=== PATIENT | female | born 1930 | race Caucasian/White ===

== ENCOUNTER → 2016-11-01 | Outpatient (CLI) | payer MEDICARE ==
[~2016-11-01] MED LIST: AMLO2.5T2 PO; ATOR20TA49 PO; CALC-9 PO; CALC625T PO; CLD600T; CLOP75TA69 PO; CYAN10007 PO; E400C; HCT25T; HCTZ12.5T; HYDR-3583 PO; LEVO75TA57 PO; LISI1TAB6 PO; LSNP10T; LVT.088T; LVT.088T PO; MULT-178 PO; MULT1CAP27 PO; MULT1TAB63; NITR-65 PO; OMEG1CAP26 PO; OMG1KC; PSYL0.525 PO; PYRI100T2 PO; THYROXINE; VITA1CAP11 PO
--- NOTE | 2016-11-01 15:21 | Diagnostic Imaging Report ---
PA and lateral views of the chest. INDICATION: Shortness of breath. FINDINGS: There is mild hyperinflation in the lungs. Mild opacity in the medial right lung base is likely related to prominent pericardial fat pad with no focal infiltrate. The heart size is normal. No effusion or pneumothorax. The mediastinum and ruth appear unremarkable. Surgical clips in the left axilla region seen. IMPRESSION: COPD. Dictated by: Dictated on workstation # [id number]
== END ==
LOC: RAD 14:29
PROVIDERS: ATTEND Internal Medicine
DX: R06.09 Other forms of dyspnea (principal); R09.02 Hypoxemia
CPT/HCPCS: 71020

== ENCOUNTER → 2016-11-19 | Outpatient (CLI) | payer MEDICARE ==
--- NOTE | 2016-11-22 06:55 | ECHOCARDIOGRAPHY REPORT ---
DATE OF SERVICE: 11/19/2016 ECHOCARDIOGRAPHY REPORT ORDERING PHYSICIAN: Dr. Nicole. PRIMARY PHYSICIAN: Dr. Carlos. CLINICAL DIAGNOSES: Tiredness, shortness of breath, paroxysmal atrial fibrillation. MEASUREMENTS: 1. LV diameter diastolic 4.9. 2. IVS thickness, diastolic 1.1. 3. LVPW thickness, diastolic, 0.8. 4. Aortic root 3.4. 5. Left atrium 3.7. DESCRIPTION: Two-dimensional echocardiography shows normal global left ventricular systolic function with normal regional wall motion. There is no significant pericardial effusion. Chamber sizes appear to be within normal limits. Aortic valve is trileaflet. There is mild aortic valve sclerosis. Mitral inflow is consistent with grade 1 diastolic dysfunction of the left ventricle. There is no evidence of any significant intracardiac shunt on this transthoracic echocardiographic study. Inferior vena cava is of normal size and appears mostly collapsed during the study. Pulmonary artery systolic pressure is estimated to be 30 to 35 mmHg. CONCLUSIONS: 1. Normal global left ventricular systolic function with an ejection fraction of approximately 65%. 2. Trivial mitral and tricuspid regurgitation. 3. Mild diastolic dysfunction, left ventricle. 4. Mild aortic valve sclerosis. 5. No evidence of any significant valvular stenosis. 6. Pulmonary artery systolic pressure is estimated to be 30 to 35 mmHg. Job ID: [id number] DocumentID: [id number] Dictated Date: 11/21/2016 13:28:37 Coordinating Producer Date: 11/21/2016 14:52:44 Dictated By: BENI NICOLE MD, MA, FACP, FACC,
== END ==
LOC: CARD 10:41
PROVIDERS: ATTEND Internal Medicine Cardiovascular Disease
DX: I48.0 Paroxysmal atrial fibrillation (principal); R06.02 Shortness of breath; R53.83 Other fatigue; G45.9 Transient cerebral ischemic attack, unspecified
CPT/HCPCS: 93225; 93226; 93306

== ENCOUNTER → 2016-11-27 | Outpatient (CLI) | payer MEDICARE ==
[~2016-11-27] MED LIST changes: +CATHETER FLUSH 10 ML SYR IV PRN; +REGADENOSON 0.4 MG/5 ML SYR (LEXISCAN) IV ONE
[2016-11-27 09:23] VITALS: BP 135/77
[2016-11-27 09:27] VITALS: BP 113/55
--- NOTE | 2016-11-28 06:30 | STRESS TEST ---
DATE OF SERVICE: 11/27/2016 PROCEDURE: RESTING AND POST REGADENOSON TECHNETIUM 99M TETROFOSMIN SPECT CT IMAGING ORDERING PHYSICIAN: Remi Nicole MD, MA, FACP, FACC CLINICAL DIAGNOSES: Paroxysmal atrial fibrillation, tiredness and shortness of breath. Baseline images were carried out after injection of 10.93 mCi of technetium-99m Tetrofosmin. This was followed by 0.4 mg of Regadenoson and 31.1 mCi of technetium-99m Tetrofosmin for stress imaging. The electrocardiogram showed sinus rhythm at baseline and left axis deviation. The electrocardiogram did not change significantly with Regadenoson infusion. The patient tolerated the procedure well. Review of images at rest and following stress indicates somewhat diminished count uptake in the diaphragmatic wall of the left ventricle, likely due to diaphragmatic attenuation, seen both at rest and following Regadenoson infusion. Gated images show normal global left ventricular systolic function with normal regional wall motion, including the diaphragmatic wall of the left ventricle. The left ventricular ejection fraction is calculated to be 63%. Left ventricular end diastolic volume is 55 mL. TID is absent (1.09). CONCLUSIONS: 1. No evidence of any significant myocardial ischemia or infarction on this study. 2. Normal regional wall motion. 3. Normal global left ventricular systolic function with a calculated ejection fraction of 63%. Job ID: [id number] DocumentID: [id number] Dictated Date: 11/27/2016 14:06:55 Aquarium Specialist Date: 11/27/2016 15:08:49 Dictated By: REMI NICOLE MD, ALEXANDER, FACP, FACC,
== END ==
LOC: CARD 08:16
PROVIDERS: ATTEND Internal Medicine Cardiovascular Disease
DX: I48.0 Paroxysmal atrial fibrillation (principal); G45.2 Multiple and bilateral precerebral artery syndromes; R06.02 Shortness of breath; R53.83 Other fatigue
CPT/HCPCS: 78452; 93017

== ENCOUNTER → 2016-11-29 | Outpatient (CLI) | payer MEDICARE ==
[~2016-11-29] MED LIST changes: -CATHETER FLUSH 10 ML SYR IV PRN; -REGADENOSON 0.4 MG/5 ML SYR (LEXISCAN) IV ONE
--- NOTE | 2016-11-29 16:59 | Diagnostic Imaging Report ---
PROCEDURE: CT abdomen and pelvis without contrast. TECHNIQUE: Multiple contiguous axial images were obtained through the abdomen and pelvis without the use of intravenous contrast. INDICATION: Lower abdominal pain and pelvic pain. FINDINGS: The lung bases demonstrate no significant consolidation. There is a nonspecific 5 mm nodule in the inferior lingula. The liver, spleen, adrenals, and pancreas appear unremarkable. There are cysts seen in the left kidney with no hydronephrosis. The right kidney demonstrates mild hydronephrosis with minimal dilatation of the right ureter seen. There is soft tissue fullness in the right side of the pelvis, inseparable from adjacent unopacified bowel loops and the right adnexa. This involves an area approximately measuring 5.9 x 3.3 x 6.2 cm. Better evaluation with a CT scan with oral contrast and, if feasible, IV contrast would be recommended. A pelvic ultrasound could be helpful. There is no bowel obstruction. No significant lymphadenopathy is seen in the abdomen or pelvis. No significant free fluid or fluid collection. The osseous structures demonstrate advanced degenerative changes in the lower lumbar spine. IMPRESSION: Indeterminate fullness within the right side of the pelvis inseparable from adjacent bowel loops and right adnexa. Further evaluation with a pelvic ultrasound and a CT scan with oral and IV contrast (if feasible) is recommended. Report faxed to Dr. Carlos at 4:58 p.m. 11/29/2016/tia Dictated by: Dictated on workstation # [id number]
== END ==
LOC: RAD 13:07
PROVIDERS: ATTEND Internal Medicine
DX: R93.5 Abnormal findings on diagnostic imaging of other abdominal regions, including retroperitoneum (principal)
CPT/HCPCS: 74176

== ENCOUNTER 2016-12-13 09:39 | Emergency (ER) | payer MEDICARE ==
[~2016-12-13] VITALS: Ht 170.2 cm; Wt 64.9 kg
--- NOTE | 2016-12-13 10:28 | ED Trauma-Multisystem ---
General Chief Complaint: Trauma-Non Activation Stated Complaint: FALL/HEAD INJURY Nursing Triage Note: PT WAS IN ASSISTED LIVING REACHING FOR SOMETHING OUT OF HER CABINET AND FELL HITTING HER HEAD. DENIES LOC. IS ON A BLOOD THINNER. PT IS SCHEDULED FOR A TRANSVAGINAL US TOMORROW HERE AND DAUGHTER IS WONDERING IF THEY COULD HAVE IT DONE NOW. Source of Information: Patient Exam Limitations: No Limitations (DAFNE SOTO MD) History of Present Illness Time Seen by Provider: 10:20 Initial Comments The patient's an 86-year-old white female. She lives in an assisted living facility. She reports that this morning she was reaching above her head to get an item out of the cupboard. She then fell backward and apparently struck her head. There was no loss of consciousness. She does have some ambulation issues anyway. She was able to crawl back across the room and pushed the call button and the staff came to her rescue. Occurred: This Morning Pain/Injury Location: None Method of Injury: Fall Associated Symptoms (Fall): Denies Symptoms (DAFNE SOTO MD) Allergies and Home Medications Allergies Coded Allergies: aspirin (Verified Allergy, Unknown, 05/01/15) niacin (Verified Allergy, Unknown, 05/01/15) clopidogrel (Verified Adverse Reaction, Unknown, INTERNAL BLEEDING , 05/01) Uncoded Allergies: BERLANTA (Allergy, Severe, ASTHMA, 12/13/16) Home Medications Amlodipine Besylate 2.5 Mg Tablet, 2.5 MG PO DAILY, (Reported) Atorvastatin Calcium 20 Mg Tablet, 20 MG PO DAILY, #30 Prescribed by: GAGE DOMINGUEZ on 05/02/15 1425 Calcium Carbonate/Vitamin D3 1 Each Tablet, 1 TAB PO DAILY, (Reported) Cyanocobalamin 1,000 Mcg Tablet.sa, 1,000 MCG PO DAILY, (Reported) Levothyroxine Sodium 75 Mcg Tablet, 75 MCG PO DAILY, (Reported) Multivitamin 1 Each Tablet, 1 TAB PO DAILY, (Reported) Nitrofurantoin Monohyd/M-Cryst 100 Mg Capsule, 1 TAB PO BID, #14 Ref 0 Prescribed by: KAREN MERCEDES on 01/01/16 1341 [place]-3/Dha/Epa/Fish Oil 1 Each Capsule, 3,000 MG PO DAILY, (Reported) TAKES 3 (1000MG) CAPSULES Pyridoxine Hcl 100 Mg Tablet, 100 MG PO DAILY, (Reported) Vitamins A and D 1 Each Capsule, 1 CAP PO DAILY, (Reported) [Eliquis] , (Reported) Constitutional: see HPI Eyes: No Symptoms Reported Ears: No Symptoms Reported Nose: No Symptoms Reported Mouth: No Symptoms Reported Throat: No Symptoms to Report Respiratory: no symptoms reported Cardiovascular: No Symptoms Reported Gastrointestinal: no symptoms reported Genitourinary: no symptoms reported Musculoskeletal: no symptoms reported Skin: no symptoms reported Psychiatric/Neurological: No Symptoms Reported (DAFNE SOTO MD) Past Vyfkvsu-Imzxpw-Nwqfnh Hx Patient Social History Alcohol Use: Denies Use Recreational Drug Use: No Smoking Status: Never a Smoker Recent Foreign Travel: No Contact w/Someone Who Travel: No Recent Infectious Disease Expo: No Recent Hopitalizations: No (DAFNE SOTO MD) Immunizations Up To Date Date of Pneumonia Vaccine: Oct 11, 2014 Date of Influenza Vaccine: May 27, 2012 (DAFNE SOTO MD) Surgeries HX Surgeries: Yes (COLONOSCOPY 02/24, COLECTOMY 02/24, NASAL POLYPS REMOVED, LT MASTECTOMY) (DAFNE SOTO MD) Respiratory Hx Respiratory Disorders: No (DAFNE SOTO MD) Cardiovascular Hx Cardiac Disorders: Yes Cardiac Disorders: Atrial Fibrillation, High Cholesterol, Hypertension (DAFNE SOTO MD) Neurological Hx Neurological Disorders: Yes (CONFUSION X4 (UTI VS TIA)) Neurological Disorders: TIA (DAFNE SOTO MD) Reproductive System Hx Reproductive Disorders: No Sexually Transmitted Disease: No (DAFNE SOTO MD) Genitourinary Hx Genitourinary Disorders: Yes (UTI) (DAFNE SOTO MD) Gastrointestinal Hx Gastrointestinal Disorders: Yes (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) Gastrointestinal Disorders: Hemorrhoids, Polyps (DAFNE SOTO MD) Musculoskeletal Hx Musculoskeletal Disorders: Yes Musculoskeletal Disorders: Arthritis (DAFNE SOTO MD) Endocrine Hx Endocrine Disorders: Yes Endocrine Disorders: Hypothyroidsim (DAFNE SOTO MD) HEENT HX ENT Disorders: Yes (LT EYE LAZY, RT EYE CATARACT REMOVED ) (DAFNE SOTO MD) Cancer Hx Cancer: No (DAFNE SOTO MD) Psychosocial Hx Psychiatric Problems: No (DAFNE SOTO MD) Integumentary HX Skin/Integumentary Disorder: No (DAFNE SOTO MD) Blood Transfusions Hx Blood Disorders: Yes ("SLIGHT ANEMIA" ) Adverse Reaction to a Blood Tr: No (DAFNE SOTO MD) Family Medical History Significant Family History: No Pertinent Family Hx Family Medial History: Diabetes mellitus G8 SISTER G8 SISTER (DAFNE SOTO MD) Family Medial History: Diabetes mellitus G8 SISTER G8 SISTER (NAYAN HERNANDEZ MD) Physical Exam Vital Signs Vital Sign - Last 12Hours 12/13/16 09:51 Temp 98.0 Pulse 75 Resp 16 B/P (MAP) 114/61 Pulse Ox 98 (NAYAN HERNANDEZ MD) Temperature (Fahrenheit): 98.0 General Appearance: No Apparent Distress, WD/WN Head: No Evidence of Injury, Other (the patient reports she believes that she fell to the right. There is no evidence of contusion or ecchymosis on the right uatsdin and no deformity to the eyeglasses) Eyes: Bilateral Eye Normal Inspection Neck: Normal Inspection Cardiovascular: Regular Rate, Rhythm, No Edema, No Gallop, No JVD, No Murmur, Normal Peripheral Pulses Respiratory: Chest Non Tender, Lungs Clear, Normal Breath Sounds, No Accessory Muscle Use, No Respiratory Distress Gastrointestinal: Normal Bowel Sounds, No Organomegaly, No Pulsatile Mass, Non Tender, Soft Back: Normal Inspection, No CVA Tenderness, No Vertebral Tenderness Extremity: Normal Capillary Refill, Normal Inspection, Normal Range of Motion, Non Tender, No Calf Tenderness, No Pedal Edema Neurologic/Psychiatric: Alert, Oriented x3, No Motor/Sensory Deficits, Normal Mood/Affect Skin: Normal Color, Warm/Dry Lymphatic: No Adenopathy (DAFNE SOTO MD) [place] Coma Score Best Eye Response ([place]): (4) Open Spontaneously Best Verbal Response ([place]): (5) Oriented Best Motor Response ([place]): (6) Obeys Commands (DAFNE SOTO MD) Progress/Results/Core Measures Results/Orders Vital Signs/I&O Vital Sign - Last 12Hours 12/13/16 09:51 Temp 98.0 Pulse 75 Resp 16 B/P (MAP) 114/61 Pulse Ox 98 (NAYAN HERNANDEZ MD) Blood Pressure Mean: 78 Progress Note : Progress Note 1110: CT head shows no acute findings. Patient remains without significant concerns. She has follow-up with her doctor and further testing tomorrow for other stuff. Discharged home with return precautions. Patient and her daughter verbalize understanding instructions and agreement with plan. (NAYAN HERNANDEZ MD) Diagnostic Imaging Diagonstic Imaging: CT Plain Films/CT/US/NM/MRI: head Comments NAME: ANDREW CAGE [facility] REC#: [id number] PT STATUS: REG ER : 1930 PHYSICIAN: DAFNE SOTO MD ADMIT DATE: 12/13/16/ER Signed Date of Exam: 12/13/16 CT HEAD WO PROCEDURE: CT head without contrast. TECHNIQUE: Multiple contiguous axial images were obtained through the brain without the use of intravenous contrast. INDICATION: Fall. FINDINGS: There is no intracranial hemorrhage, edema or mass-effect. Periventricular and deep white matter hypodensities similar to 01/01/2016 are again noted compatible with chronic microvascular ischemic changes. No hydrocephalus. No extra-axial fluid collection is seen. Again seen are postoperative changes involving the anterior aspect of the right frontal sinuses which appear completely opacified, similar to the previous exam. Sinonasal postsurgical changes are also noted in the maxillary sinuses, ethmoidal air cells, and sphenoidal sinuses. The mastoid air cells and middle ear cavities appear unremarkable. IMPRESSION: No acute process. Dictated by: Dictated on workstation # [id number] Dict: 12/13/16 1031 Trans: 12/13/16 1042 Interpreted by: JERILYN RAYO MD Electronically signed by: JERILYN RAYO MD 12/13/16 1042 (NAYAN HERNANDEZ MD) Departure Impression Impression: Primary Impression: Head injury Qualified Codes: S09.90XA - Unspecified injury of head, initial encounter Disposition: 01 HOME, SELF-CARE Condition: Stable Departure-Patient Inst. Decision time for Depature: 11:13 (NAYAN HERNANDEZ MD) Referrals: RONALD TAVERAS MD (PCP/Family) Primary Care Physician Patient Instructions: Minor Head Injury (DC) Add. Discharge Instructions: All discharge instructions reviewed with patient and/or family. Voiced understanding. Continue home medications as directed. Follow-up with your . and keep appointments as scheduled. Return for worsening, fever, vomiting, weakness, breathing problems or other concerns as needed. DAFNE SOTO MD December 13, 2016 10:28 NAYAN HERNANDEZ MD December 13, 2016 11:15
[2016-12-13] MEDS ORDERED: ELIQUIS (10:38)
--- NOTE | 2016-12-13 10:42 | Diagnostic Imaging Report ---
PROCEDURE: CT head without contrast. TECHNIQUE: Multiple contiguous axial images were obtained through the brain without the use of intravenous contrast. INDICATION: Fall. FINDINGS: There is no intracranial hemorrhage, edema or mass-effect. Periventricular and deep white matter hypodensities similar to 01/01/2016 are again noted compatible with chronic microvascular ischemic changes. No hydrocephalus. No extra-axial fluid collection is seen. Again seen are postoperative changes involving the anterior aspect of the right frontal sinuses which appear completely opacified, similar to the previous exam. Sinonasal postsurgical changes are also noted in the maxillary sinuses, ethmoidal air cells, and sphenoidal sinuses. The mastoid air cells and middle ear cavities appear unremarkable. IMPRESSION: No acute process. Dictated by: Dictated on workstation # [id number]
[2016-12-13 11:23] VITALS: BP 107/65
== END 2016-12-13 11:23 ==
LOC: EDUNIT# 09:39 → ER 09:41
DX: S09.90XA Unspecified injury of head, initial encounter (principal); I10 Essential (primary) hypertension; I48.2 Chronic atrial fibrillation; Z79.01 Long term (current) use of anticoagulants; Z79.899 Other long term (current) drug therapy; W01.0XXA Fall on same level from slipping, tripping and stumbling without subsequent striking against object, initial encounter; Y92.120 Kitchen in nursing home as the place of occurrence of the external cause; Y99.8 Other external cause status
CPT/HCPCS: 70450; 99282

== ENCOUNTER → 2016-12-14 | Outpatient (CLI) | payer MEDICARE ==
[~2016-12-14] MED LIST changes: +ELIQUIS
--- NOTE | 2016-12-14 14:27 | Diagnostic Imaging Report ---
PROCEDURE: US PELVIC (NON OB) TECHNIQUE: Multiple real-time grayscale images were obtained over the pelvis in various projections transabdominally. IMPRESSION: Pelvic pain. FINDINGS: Survey of the pelvis was suboptimal because of patient cooperation. The urinary bladder was present. The uterus and ovaries cannot be located sonographically. IMPRESSION: Attempted pelvic ultrasound, limited with only images of the bladder obtained. Dictated by: Dictated on workstation # [id number]
== END ==
LOC: RAD 13:04
PROVIDERS: ATTEND Internal Medicine
DX: R10.2 Pelvic and perineal pain (principal)
CPT/HCPCS: 76856

== ENCOUNTER 2017-01-15 07:04 | Emergency (ER) | payer MEDICARE ==
[~2017-01-15] VITALS: Ht 165.1 cm; Wt 61.2 kg
--- NOTE | 2017-01-15 07:20 | ED Fall/Injury ---
General Chief Complaint: Trauma-Non Activation Stated Complaint: FELL LACERATION RIGHT EYE Nursing Triage Note: TO ROOM 07 WITH COMPLAINTS OF A LAC OVER RIGHT EYE. STATES SHE WAS REACHING FOR THE LIGHT AND FELL AND HIT HER HEAD. PT ARRIVED IN A C-COLLAR. Source: patient Exam Limitations: no limitations History of Present Illness Time seen by provider: 07:10 Initial Comments Here with complaint of fall with injury to the right brow. No loss of consciousness. Mechanical fall and she may have lost her balance. She had gotten up to go to the bathroom and it was dark. She was reaching for a light switch when she fell over. She was able to crawl to the bathroom and use the call light for help at the assisted living facility. Denies other injury. Patient is on anticoagulant. Location Injury Occurred: [place] Occurred: this morning (1-2 hours ago) Severity: mild Injuries/Pain Location: head Context: lost balance Loss of Consciousness: no loss of consciousness Associated Symptoms (Fall): No Abdominal Pain, No Chest Pain, No Confusion, No Headache, No Nausea/Vomiting, No Neck Pain Allergies and Home Medications Allergies Coded Allergies: aspirin (Verified Allergy, Unknown, 05/01/15) niacin (Verified Allergy, Unknown, 05/01/15) clopidogrel (Verified Adverse Reaction, Unknown, INTERNAL BLEEDING , 05/01) Uncoded Allergies: BERLANTA (Allergy, Severe, ASTHMA, 12/13/16) Home Medications Amlodipine Besylate 2.5 Mg Tablet, 2.5 MG PO DAILY, (Reported) Atorvastatin Calcium 20 Mg Tablet, 20 MG PO DAILY, #30 Prescribed by: GAGE DOMINGUEZ on 05/02/15 1425 Calcium Carbonate/Vitamin D3 1 Each Tablet, 1 TAB PO DAILY, (Reported) Cyanocobalamin 1,000 Mcg Tablet.sa, 1,000 MCG PO DAILY, (Reported) Levothyroxine Sodium 75 Mcg Tablet, 75 MCG PO DAILY, (Reported) Multivitamin 1 Each Tablet, 1 TAB PO DAILY, (Reported) Nitrofurantoin Monohyd/M-Cryst 100 Mg Capsule, 1 TAB PO BID, #14 Ref 0 Prescribed by: KAREN MERCEDES on 01/01/16 1341 Williamson-3/Dha/Epa/Fish Oil 1 Each Capsule, 3,000 MG PO DAILY, (Reported) TAKES 3 (1000MG) CAPSULES Pyridoxine Hcl 100 Mg Tablet, 100 MG PO DAILY, (Reported) Vitamins A and D 1 Each Capsule, 1 CAP PO DAILY, (Reported) [Eliquis] , (Reported) Constitutional: see HPI, No chills, No fever Eyes: No Symptoms Reported Ears, Nose, Mouth, Throat: no symptoms reported Respiratory: no symptoms reported Cardiovascular: no symptoms reported Skin: see HPI, other All Other Systems Reviewed Negative Unless Noted: Yes Past Sltvcyw-Rhgecq-Lhtcye Hx Patient Social History Alcohol Use: Denies Use Recreational Drug Use: No Smoking Status: Never a Smoker Recent Foreign Travel: No Contact w/Someone Who Travel: No Recent Infectious Disease Expo: No Recent Hopitalizations: No Immunizations Up To Date Tetanus Booster (TDap): Unknown Date of Pneumonia Vaccine: Oct 11, 2014 Date of Influenza Vaccine: May 27, 2012 Surgeries HX Surgeries: Yes (COLONOSCOPY 02/24, COLECTOMY 02/24, NASAL POLYPS REMOVED, LT MASTECTOMY) Respiratory Hx Respiratory Disorders: No Cardiovascular Hx Cardiac Disorders: Yes Cardiac Disorders: Atrial Fibrillation, High Cholesterol, Hypertension Neurological Hx Neurological Disorders: Yes (CONFUSION X4 (UTI VS TIA)) Neurological Disorders: TIA Reproductive System Hx Reproductive Disorders: No Sexually Transmitted Disease: No Genitourinary Hx Genitourinary Disorders: Yes (UTI) Gastrointestinal Hx Gastrointestinal Disorders: Yes (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) Gastrointestinal Disorders: Hemorrhoids, Polyps Musculoskeletal Hx Musculoskeletal Disorders: Yes Musculoskeletal Disorders: Arthritis Endocrine Hx Endocrine Disorders: Yes Endocrine Disorders: Hypothyroidsim HEENT HX ENT Disorders: Yes (LT EYE LAZY, RT EYE CATARACT REMOVED ) Cancer Hx Cancer: No Psychosocial Hx Psychiatric Problems: No Integumentary HX Skin/Integumentary Disorder: No Blood Transfusions Hx Blood Disorders: Yes ("SLIGHT ANEMIA" ) Adverse Reaction to a Blood Tr: No Reviewed Nursing Assessment Reviewed/Agree w Nursing PMH: Yes Family Medical History Significant Family History: No Pertinent Family Hx Family Medial History: Diabetes mellitus G8 SISTER G8 SISTER Physical Exam Vital Signs Vital Sign - Last 12Hours 01/15/17 07:08 Temp 98.0 Pulse 87 Resp 16 B/P (MAP) 144/80 Pulse Ox 95 Capillary Refill : Less Than 3 Seconds General Appearance: WD/WN, no apparent distress HEENT: TMs normal, other (small abrasion to the lateral right brow with mild contusion. No bony mobility. Right eye blindness. Left pupil reactive) Neck: full range of motion, supple Cardiovascular: regular rate, rhythm, no murmur Respiratory: lungs clear, normal breath sounds Gastrointestinal: non tender, soft Extremities: normal range of motion, non-tender, pelvis stable Skin: warm/dry, ecchymosis, other (see above) Rumson Coma Score Best Eye Response: (4) Open Spontaneously Best Verbal Response: (5) Oriented Best Motor Response: (6) Obeys Commands Progress/Results/Core Measures Results/Orders My Orders Orders - NAYAN HERNANDEZ MD Ct Head/Cervical Spine Wo (01/15/17 07:13) Dipht,Pertuss(Acell),Tet Adult (Boostrix (01/15/17 08:21) Vital Signs/I&O Vital Sign - Last 12Hours 01/15/17 07:08 Temp 98.0 Pulse 87 Resp 16 B/P (MAP) 144/80 Pulse Ox 95 Blood Pressure Mean: 101 Progress Note : Progress Note Seen and evaluated. CT head/neck ordered. Tetanus updated. 0842: CT results noted. C-collar removed. Patient pain free on moving her head with no neck pain. Denies any other complaints. Family at bedside. Discharged home with return precautions. Patient and family verbalize understanding instructions and agreement with plan. Diagnostic Imaging Diagonstic Imaging: CT Plain Films/CT/US/NM/MRI: c-spine, head Comments NAME: ANDREW CAGE [facility] REC#: [id number] PT STATUS: REG ER : 1930 PHYSICIAN: NAYAN HERNANDEZ MD ADMIT DATE: 01/15/17/ER Draft Date of Exam:01/15/17 CT HEAD/CERVICAL SPINE WO PROCEDURE: CT head and CT cervical spine without contrast. TECHNIQUE: Multiple contiguous axial images were obtained through the brain and cervical spine without the use of intravenous contrast. Sagittal and coronal reformations through the cervical spine were then performed. INDICATION: Fall. FINDINGS: CT HEAD: There is some no intracranial hemorrhage, edema or mass effect. Periventricular and deep white matter from hypodensities compatible with chronic microvascular ischemic changes are seen. There is no hydrocephalus. No extra-axial fluid collection is noted. From prior surgery involving the frontal sinuses with suggestion of packing or other opacification within the sinuses is seen similar to 12/13/2016. The calvarium otherwise appear unremarkable. Other sinonasal surgery is also evidence in the ethmoidal air cells and the maxillary sinuses. CT CERVICAL SPINE: There is reversal of the lordotic curvature and alignment abnormalities including the anterior translation of C4 over C5 and posterior translation of C5 over C6. There is also anterior translation of C7 over T1. When compared to 01/01/2016, this is stable and is likely degenerative. There is fusion of the facet joints along levels at C4/C5 with solid fusion on the right side and the effusion suggested on the left at this level. There is otherwise no subluxation or dislocation of the facet joints. The lateral masses of C1 and C2 and atlantooccipital joints appears satisfactorily aligned. No widening of the predental space. The vertebral body heights are preserved. There is severe disc height loss at C5/C6 and C6/C7 levels. Multilevel advanced neural foraminal stenosis is also seen. IMPRESSION: CT head: No acute process. CT cervical spine: Advanced degenerative changes. The alignment abnormalities described are also most likely degenerative in stable from prior exam of 01/01/2016. No fracture seen. Dictated on workstation # [id number] Dict: 01/15/17 0806 Trans: 01/15/17 0839 [facility] [id number] Interpreted by: JERILYN RAYO MD Electronically signed by: Departure Impression Impression: Primary Impression: Forehead contusion Qualified Codes: S00.83XA - Contusion of other part of head, initial encounter Additional Impression: Abrasion of forehead Qualified Codes: S00.81XA - Abrasion of other part of head, initial encounter Disposition: 01 HOME, SELF-CARE Condition: Stable Departure-Patient Inst. Decision time for Depature: 08:46 Referrals: RONALD TAVERAS MD (PCP/Family) Primary Care Physician Patient Instructions: Contusion (DC), Minor Head Injury (DC), Skin Abrasions ( DC) Add. Discharge Instructions: All discharge instructions reviewed with patient and/or family. Voiced understanding. You may use antibiotic ointment and Band-Aid over wound to forehead. You should use night lights to help prevent falls at night. Follow-up with your Dr. in a few days for recheck. Return for worse pain, fever, vomiting, weakness , breathing problems or other concerns as needed. NAYAN HERNANDEZ MD Jan 15, 2017 07:20
[2017-01-15] MEDS ORDERED: TETANUS,DIPTH,PERTUSS P/F (BOOSTRIX) 0.5 ML VIAL IM STA (08:21)
--- NOTE | 2017-01-15 08:40 | Diagnostic Imaging Report ---
PROCEDURE: CT head and CT cervical spine without contrast. TECHNIQUE: Multiple contiguous axial images were obtained through the brain and cervical spine without the use of intravenous contrast. Sagittal and coronal reformations through the cervical spine were then performed. INDICATION: Fall. FINDINGS: CT HEAD: There is some no intracranial hemorrhage, edema or mass effect. Periventricular and deep white matter from hypodensities compatible with chronic microvascular ischemic changes are seen. There is no hydrocephalus. No extra-axial fluid collection is noted. From prior surgery involving the frontal sinuses with suggestion of packing or other opacification within the sinuses is seen similar to 12/13/2016. The calvarium otherwise appear unremarkable. Other sinonasal surgery is also evidence in the ethmoidal air cells and the maxillary sinuses. CT CERVICAL SPINE: There is reversal of the lordotic curvature and alignment abnormalities including the anterior translation of C4 over C5 and posterior translation of C5 over C6. There is also anterior translation of C7 over T1. When compared to 01/01/2016, this is stable and is likely degenerative. There is fusion of the facet joints along levels at C4/C5 with solid fusion on the right side and the effusion suggested on the left at this level. There is otherwise no subluxation or dislocation of the facet joints. The lateral masses of C1 and C2 and atlantooccipital joints appears satisfactorily aligned. No widening of the predental space. The vertebral body heights are preserved. There is severe disc height loss at C5/C6 and C6/C7 levels. Multilevel advanced neural foraminal stenosis is also seen. IMPRESSION: CT head: No acute process. CT cervical spine: Advanced degenerative changes. The alignment abnormalities described are also most likely degenerative, stable from prior exam of 01/01/2016. No fracture seen. Dictated by: Dictated on workstation # [id number]
[2017-01-15 09:07] VITALS: BP 96/63
--- OUTSIDE RECORDS SUMMARY | 2017-01-15 10:15 | XMS REPORT | Continuity of Care Document ---
Author Author [facility] Organization [facility] Address Unknown Phone Unavailable Allergies Active Description Code Type Severity Reaction Onset Reported/Identified Relationship to Patient Clinical Status Yes aspirin [id number] Drug Allergy Unknown N/A 05/01/2015 Yes clopidogrel [id number] Drug Allergy Unknown INTERNAL BLEEDI 05/01/2015 Yes niacin [id number] Drug Allergy Unknown N/A 05/01/2015 Yes BERLANTA BERLANTA Severe ASTHMA 12/13/2016 Medications Problems Date Dx Coded Attending Type Code Diagnosis Diagnosed By 06/20/1342 DEBBIE LOMBARDI APRN Ot M54.41 02/05/2006 Ot V57.1 02/05/2006 Ot V58.75 06/05/2009 Ot 787.91 DIARRHEA 01/09/2010 Ot 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 01/09/2010 Ot 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 01/09/2010 Ot V67.09 SURGERY FOLLOW-UP, OTHER SURGERY 02/04/2010 Ot 401.9 HYPERTENSION NOS 02/04/2010 Ot 729.81 SWELLING OF LIMB 02/04/2010 Ot 924.10 CONTUSION OF LOWER LEG 02/04/2010 Ot E000.8 OTHER EXTERNAL CAUSE STATUS 02/04/2010 Ot E029.9 OTHER ACTIVITY 02/04/2010 Ot E849.0 ACCIDENT IN HOME 02/04/2010 Ot E888.9 FALL NOS 05/05/2012 Ot 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 05/05/2012 Ot V10.3 HX OF BREAST MALIGNANCY 05/05/2012 Ot V12.72 PERSONAL HISTORY OF COLONIC POLYPS 05/05/2012 Ot V58.69 OTH MED,LT,CURRENT USE 05/16/2012 Ot 786.50 CHEST PAIN NOS 06/04/2012 Ot 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 06/04/2012 Ot 285.9 ANEMIA NOS 06/04/2012 Ot 287.5 THROMBOCYTOPENIA NOS 06/04/2012 Ot 401.9 HYPERTENSION NOS 06/04/2012 Ot 560.1 PARALYTIC ILEUS 06/04/2012 Ot 568.0 PERITONEAL FVSAOWUCP-PUGZ-LE/INF 06/04/2012 Ot 997.49 OTHER DIGESTIVE SYSTEM COMPLICATIONS 06/04/2012 Ot V10.3 HX OF BREAST MALIGNANCY 10/22/2012 Ot 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 10/22/2012 Ot 787.91 DIARRHEA 01/13/2014 LIA العراقي MD Ot 455.0 INT HEMORRHOID W/O COMPL 01/13/2014 LIA العراقي MD Ot 455.2 INT HEMRRHOID W COMP NEC 01/13/2014 LIA العراقي MD Ot 562.10 DIVERTICULOSIS COLON (W/O MENT OF HEMORR 01/13/2014 LIA العراقي MD Ot V12.72 PERSONAL HISTORY OF COLONIC POLYPS 01/13/2014 LIA العراقي MD Ot V58.63 LONG-TERM(CURRENT)USE OF ANTIPLATELET/AN 06/28/2014 DEBBIE LOMBARDI MANAGER SOCIAL WORK Ot 285.9 ANEMIA NOS 07/02/2014 DEBBIE LOMBARDI MANAGER SOCIAL WORK Ot 285.9 07/02/2014 DEBBIE LOMBARDI MANAGER SOCIAL WORK Ot 578.1 08/30/2014 DEBBIE LOMBARDI MANAGER SOCIAL WORK Ot 285.9 08/30/2014 DEBBIE LOMBARDI MANAGER SOCIAL WORK Ot 578.1 09/09/2014 Ot V76.12 09/09/2014 Ot 786.2 09/09/2014 Ot V76.12 09/09/2014 Ot V72.84 09/09/2014 Ot 153.9 09/09/2014 Ot V72.84 09/09/2014 Ot V74.8 09/09/2014 Ot 285.9 09/09/2014 RONALD TAVERAS MD Ot 433.10 09/09/2014 RONALD TAVERAS MD Ot V76.12 09/09/2014 LEILANI KEYES, JF Nolan Ot 244.9 09/09/2014 LEILANI KEYES, JF Nolan Ot 397.0 09/09/2014 JF DUKE MD Ot 401.9 09/09/2014 JF DUKE MD Ot 424.0 09/09/2014 JF DUKE MD Ot 780.79 09/09/2014 JF DUKE MD Ot 786.09 09/09/2014 JF DUKE MD Ot 401.9 09/09/2014 JF DUKE MD Ot 780.79 09/09/2014 JF DUKE MD Ot 786.09 09/09/2014 LIA العراقي MD Ot V72.84 09/09/2014 DEBBIE LOMBARDI MANAGER SOCIAL WORK Ot 285.9 09/09/2014 DEBBIE LOMBARDI MANAGER SOCIAL WORK Ot 578.1 09/26/2014 DEBBIE LOMBARDI MANAGER SOCIAL WORK Ot 285.9 ANEMIA NOS 09/26/2014 DEBBIE LOMBARDI MANAGER SOCIAL WORK Ot 578.1 BLOOD IN STOOL 04/28/2015 Ot V76.12 04/28/2015 Ot 786.2 04/28/2015 Ot V76.12 04/28/2015 Ot V72.84 04/28/2015 Ot 153.9 04/28/2015 Ot V72.84 04/28/2015 Ot V74.8 04/28/2015 Ot 285.9 04/28/2015 RONALD TAVERAS MD Ot 433.10 04/28/2015 RONALD TAVERAS MD Ot V76.12 04/28/2015 JF DUKE MD Ot 244.9 04/28/2015 JF DUKE MD Ot 397.0 04/28/2015 JF DUKE MD Ot 401.9 04/28/2015 JF DUKE MD Ot 424.0 04/28/2015 JF DUKE MD Ot 780.79 04/28/2015 JF DUKE MD Ot 786.09 04/28/2015 JF DUKE MD Ot 401.9 04/28/2015 JF DUKE MD Ot 780.79 04/28/2015 JF DUKE MD Ot 786.09 04/28/2015 LIA العراقي MD Ot V72.84 04/28/2015 Ot V76.12 04/28/2015 Ot 285.9 04/28/2015 Ot 578.1 05/02/2015 RONALD TAVERAS MD Ot G45.9 TRANSIENT CEREBRAL ISCHEMIC ATTACK, UNSP 05/02/2015 RONALD TAVERAS MD Ot I10 ESSENTIAL (PRIMARY) HYPERTENSION 05/02/2015 RONALD TAVERAS MD Ot S00.93XA CONTUSION OF UNSPECIFIED PART OF HEAD, I 05/02/2015 RONALD TAVERAS MD Ot W19.XXXA UNSPECIFIED FALL, INITIAL ENCOUNTER 05/02/2015 NITIN KEYES, RONALD Rooney Ot Y92.230 PATIENT ROOM IN HOSPITAL PLACE 05/02/2015 NITIN KEYES, RONALD Rooney Ot Y99.8 OTHER EXTERNAL CAUSE STATUS 05/18/2015 DEBBIE LOMBARDI APRN Ot R10.11 06/13/2015 JF DUKE MD Ot E78.0 09/21/2015 JF DUKE MD Ot G45.2 09/21/2015 JF DUKE MD Ot I10 09/21/2015 JF DUKE MD Ot I25.10 09/21/2015 JF DUKE MD Ot I65.23 09/21/2015 JF DUKE MD Ot R06.09 09/23/2015 DEBBIE LOMBARDI APRN Ot M54.41 09/23/2015 Ot 786.2 09/23/2015 Ot V76.12 09/23/2015 Ot V72.84 09/23/2015 Ot 153.9 09/23/2015 Ot V72.84 09/23/2015 Ot V74.8 09/23/2015 Ot 285.9 09/23/2015 RONALD TAVERAS MD Ot 433.10 09/23/2015 RONALD TAVERAS MD Ot V76.12 09/23/2015 LEILANI KEYES, JF Nolan Ot 244.9 09/23/2015 LEILANI KEYES, JF Nolan Ot 397.0 09/23/2015 LEILANI KEYES, JF Nolan Ot 401.9 09/23/2015 LEILANI KEYES, JF Nolan Ot 424.0 09/23/2015 LEILANI KEYES, JF Nolan Ot 780.79 09/23/2015 LEILANI KEYES, JF Nolan Ot 786.09 09/23/2015 LEILANI KEYES, JF Nolan Ot 401.9 09/23/2015 LEILANI KEYES, JF Nolan Ot 780.79 09/23/2015 LEILANI KEYES, JF Nolan Ot 786.09 09/23/2015 LIA العراقي MD Ot V72.84 09/23/2015 Ot V76.12 09/23/2015 Ot 285.9 09/23/2015 Ot 578.1 09/23/2015 DEBBIE LOMBARDI APRN Ot R10.11 09/23/2015 JF DUKE MD Ot E78.0 09/23/2015 JF DUKE MD Ot G45.2 09/23/2015 LEILANI KEYES, JF Nolan Ot I10 09/23/2015 JF DUKE MD Ot I25.10 09/23/2015 JF DUKE MD Ot I65.23 09/23/2015 JF DUKE MD Ot R06.09 09/23/2015 DEBBIE LOMBARDI MANAGER SOCIAL WORK Ot M54.41 10/11/2015 DEBBIE LOMBARDI MANAGER SOCIAL WORK Ot M54.41 10/13/2015 DEBBIE LOMBARDI MANAGER SOCIAL WORK Ot M54.41 LUMBAGO WITH SCIATICA, RIGHT SIDE 11/23/2015 Ot 611.0 11/23/2015 Ot 244.9 11/23/2015 Ot 272.4 11/23/2015 Ot 401.9 11/23/2015 Ot 611.72 11/23/2015 Ot V58.69 11/23/2015 Ot V72.81 11/23/2015 Ot V72.83 11/23/2015 Ot 611.79 11/23/2015 Ot 233.0 11/23/2015 Ot 244.9 11/23/2015 Ot 272.4 11/23/2015 Ot 401.9 11/23/2015 Ot V58.69 11/23/2015 Ot V72.83 11/23/2015 Ot V10.3 11/23/2015 Ot V76.11 11/23/2015 Ot V10.3 11/23/2015 Ot V45.71 11/23/2015 Ot V76.11 11/23/2015 Ot 728.6 11/23/2015 Ot V72.81 11/23/2015 Ot V72.83 11/23/2015 Ot V74.8 11/23/2015 Ot V76.12 11/23/2015 Ot V76.12 OTH SCREEN MAMMO-MALIGN NEOPLASM OF LANE 11/23/2015 Ot 786.2 COUGH 11/23/2015 Ot V76.12 OTH SCREEN MAMMO-MALIGN NEOPLASM OF LANE 11/23/2015 Ot V72.84 EXAM PRE-OPERATIVE NOS 11/23/2015 Ot 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 11/23/2015 Ot V72.84 EXAM PRE-OPERATIVE NOS 11/23/2015 Ot V74.8 SCREEN-BACTERIAL DIS NEC 11/23/2015 Ot 285.9 ANEMIA NOS 11/23/2015 RONALD TAVERAS MD Ot 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 W O CEREBRAL IN 11/23/2015 RONALD TAVERAS MD Ot V76.12 OTH SCREEN MAMMO-MALIGN NEOPLASM OF LANE 11/23/2015 JF DUKE MD Ot 244.9 HYPOTHYROIDISM NOS 11/23/2015 JF DUKE MD Ot 397.0 TRICUSPID VALVE DISEASE 11/23/2015 JF DUKE MD Ot 401.9 HYPERTENSION NOS 11/23/2015 JF DUKE MD Ot 424.0 MITRAL VALVE DISORDER 11/23/2015 JF DUKE MD Ot 780.79 OTH MALAISE FATIGUE 11/23/2015 FJ DUKE MD Ot 786.09 RESPIRATORY ABNORM NEC 11/23/2015 JF DUKE MD Ot 401.9 HYPERTENSION NOS 11/23/2015 JF DUKE MD Ot 780.79 OTH MALAISE FATIGUE 11/23/2015 JF DUKE MD Ot 786.09 RESPIRATORY ABNORM NEC 11/23/2015 LIA العراقي MD Ot V72.84 EXAM PRE-OPERATIVE NOS 11/23/2015 Ot V76.12 OTH SCREEN MAMMO-MALIGN NEOPLASM OF LANE 11/23/2015 Ot 285.9 ANEMIA NOS 11/23/2015 Ot 578.1 BLOOD IN STOOL 11/23/2015 DEBBIE LOMBARDI APRN Ot R10.11 RIGHT UPPER QUADRANT PAIN 11/23/2015 JF DUKE MD Ot E78.0 PURE HYPERCHOLESTEROLEMIA 11/23/2015 JF DUKE MD Ot 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 11/23/2015 JF DUKE MD Ot I10 ESSENTIAL (PRIMARY) HYPERTENSION 11/23/2015 JF DUKE MD Ot I25.10 ATHSCL HEART DISEASE OF [place] CORONARY 11/23/2015 JF DUKE MD Ot I65.23 OCCLUSION AND STENOSIS OF BILATERAL [place] 11/23/2015 JF DUKE MD Ot R06.09 OTHER FORMS OF DYSPNEA 12/06/2015 Ot 786.2 COUGH 12/06/2015 Ot V76.12 OTH SCREEN MAMMO-MALIGN NEOPLASM OF LANE 12/06/2015 Ot V72.84 EXAM PRE-OPERATIVE NOS 12/06/2015 Ot 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 12/06/2015 Ot V72.84 EXAM PRE-OPERATIVE NOS 12/06/2015 Ot V74.8 SCREEN-BACTERIAL DIS NEC 12/06/2015 Ot 285.9 ANEMIA NOS 12/06/2015 RONALD TAVERAS MD Ot 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 W O CEREBRAL IN 12/06/2015 RONALD TAVERAS MD Ot V76.12 OTH SCREEN MAMMO-MALIGN NEOPLASM OF LANE 12/06/2015 JF DUKE MD Ot 244.9 HYPOTHYROIDISM NOS 12/06/2015 JF DUKE MD Ot 397.0 TRICUSPID VALVE DISEASE 12/06/2015 JF DUKE MD Ot 401.9 HYPERTENSION NOS 12/06/2015 JF DUKE MD Ot 424.0 MITRAL VALVE DISORDER 12/06/2015 JF DUKE MD Ot 780.79 OTH MALAISE FATIGUE 12/06/2015 JF DUKE MD Ot 786.09 RESPIRATORY ABNORM NEC 12/06/2015 JF DUKE MD Ot 401.9 HYPERTENSION NOS 12/06/2015 JF DUKE MD Ot 780.79 OTH MALAISE FATIGUE 12/06/2015 JF DUKE MD Ot 786.09 RESPIRATORY ABNORM NEC 12/06/2015 LIA العراقي MD Ot V72.84 EXAM PRE-OPERATIVE NOS 12/06/2015 Ot V76.12 OTH SCREEN MAMMO-MALIGN NEOPLASM OF LANE 12/06/2015 Ot 285.9 ANEMIA NOS 12/06/2015 Ot 578.1 BLOOD IN STOOL 12/06/2015 DEBBIE LOMBARDI APRN Ot R10.11 RIGHT UPPER QUADRANT PAIN 12/06/2015 JF DUKE MD Ot E78.0 PURE HYPERCHOLESTEROLEMIA 12/06/2015 JF DUKE MD Ot 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 12/06/2015 JF DUKE MD Ot I10 ESSENTIAL (PRIMARY) HYPERTENSION 12/06/2015 JF DUKE MD Ot I25.10 ATHSCL HEART DISEASE OF [place] CORONARY 12/06/2015 JF DUKE MD Ot I65.23 OCCLUSION AND STENOSIS OF BILATERAL [place] 12/06/2015 JF DUKE MD Ot R06.09 OTHER FORMS OF DYSPNEA 12/06/2015 EBER KEYES FACC, ALI FACP CCDS Ot G47.9 SLEEP DISORDER, UNSPECIFIED 12/06/2015 EBER KEYES FACC, ALI FACP CCDS Ot G47.9 SLEEP DISORDER, UNSPECIFIED 12/07/2015 EBER MD FACC, ALI FACP CCDS Ot G47.9 SLEEP DISORDER, UNSPECIFIED 12/07/2015 EBER MD FACC, ALI FACP CCDS Ot 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 12/07/2015 EBER MD FACC, ALI FACP CCDS Ot I10 ESSENTIAL (PRIMARY) HYPERTENSION 12/07/2015 EBER MD FACC, ALI FACP CCDS Ot I25.10 ATHSCL HEART DISEASE OF [place] CORONARY 12/07/2015 EBER KEYES FACC, ALI FACP CCDS Ot I48.0 PAROXYSMAL ATRIAL FIBRILLATION 12/07/2015 EBER KEYES FACC, ALI FACP CCDS Ot I65.23 OCCLUSION AND STENOSIS OF BILATERAL [place] 12/07/2015 EBER KEYES FACC, ALI FACP CCDS Ot R41.0 DISORIENTATION, UNSPECIFIED 12/07/2015 EBER KEYES FACC, ALI FACP CCDS Ot 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 12/07/2015 EBER MD FACC, ALI FACP CCDS Ot I10 ESSENTIAL (PRIMARY) HYPERTENSION 12/07/2015 EBER KEYES FACC, ALI FACP CCDS Ot I25.10 ATHSCL HEART DISEASE OF [place] CORONARY 12/07/2015 EBER KEYES FACC, ALI FACP CCDS Ot I48.0 PAROXYSMAL ATRIAL FIBRILLATION 12/07/2015 EBER KEYES FACC, ALI FACP CCDS Ot I65.23 OCCLUSION AND STENOSIS OF [place]ILATERAL [place] 12/07/2015 EBER KEYES FAC, ALI FACP CCDS Ot R41.0 DISORIENTATION, UNSPECIFIED 01/01/2016 KAREN ZELAYA Ot I51.7 CARDIOMEGALY 01/01/2016 KAREN ZELAYA Ot M47.812 SPONDYLOSIS W/O MYELOPATHY OR RADICULOPA 01/01/2016 KAREN ZELAYA Ot M85.88 OTH DISRD OF BONE DENSITY AND STRUCTURE , 01/01/2016 KAREN ZELAYA Ot R29.6 REPEATED FALLS 01/01/2016 KAREN ZELAYA Ot R35.0 FREQUENCY OF MICTURITION 01/01/2016 KAREN ZELAYA Ot Z79.01 SHELTER (CURRENT) USE OF ANTICOAGULANT 01/06/2016 EBER KEYES [facility], ALI FACP CCDS Ot 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 01/06/2016 EBER KEYES FACC, ALI FACP CCDS Ot I10 ESSENTIAL (PRIMARY) HYPERTENSION 01/06/2016 EBER KEYES FAC, ALI FACP CCDS Ot I25.10 ATHSCL HEART DISEASE OF [place] CORONARY 01/06/2016 EBER WILLIAM, ALI FACP CCDS Ot I48.0 PAROXYSMAL ATRIAL FIBRILLATION 01/06/2016 EBER KEYES FACC, ALI FACP CCDS Ot I65.23 OCCLUSION AND STENOSIS OF [place]ILATERAL [place] 01/06/2016 EBER KEYES FACC, BENI FACP CCDS Ot R41.0 DISORIENTATION, UNSPECIFIED 02/17/2016 DAFNE SOTO MD Ot I95.1 ORTHOSTATIC HYPOTENSION 02/17/2016 DAFNE SOTO MD Ot R42 DIZZINESS AND GIDDINESS 02/17/2016 DAFNE SOTO MD Ot Z79.899 OTHER SHELTER (CURRENT) DRUG THERAPY 02/20/2016 DAFNE SOTO MD Ot I95.1 ORTHOSTATIC HYPOTENSION 02/20/2016 DAFNE SOTO MD Ot R42 DIZZINESS AND GIDDINESS 02/20/2016 DAFNE SOTO MD Ot Z79.899 OTHER SHELTER (CURRENT) DRUG THERAPY 11/01/2016 Ot V72.84 EXAM PRE-OPERATIVE NOS 11/01/2016 Ot 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 11/01/2016 Ot V72.84 EXAM PRE-OPERATIVE NOS 11/01/2016 Ot V74.8 SCREEN-BACTERIAL DIS NEC 11/01/2016 Ot 285.9 ANEMIA NOS 11/01/2016 RONALD TAVERAS MD Ot 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 W O CEREBRAL IN 11/01/2016 RONALD TAVERAS MD Ot V76.12 OTH SCREEN MAMMO-MALIGN NEOPLASM OF LANE 11/01/2016 JF DUKE MD Ot 244.9 HYPOTHYROIDISM NOS 11/01/2016 JF DUKE MD Ot 397.0 TRICUSPID VALVE DISEASE 11/01/2016 JF DUKE MD Ot 401.9 HYPERTENSION NOS 11/01/2016 JF DUKE MD Ot 424.0 MITRAL VALVE DISORDER 11/01/2016 JF DUKE MD Ot 780.79 OTH MALAISE FATIGUE 11/01/2016 JF DUKE MD Ot 786.09 RESPIRATORY ABNORM NEC 11/01/2016 JF DUKE MD Ot 401.9 HYPERTENSION NOS 11/01/2016 JF DUKE MD Ot 780.79 OTH MALAISE FATIGUE 11/01/2016 JF DUKE MD Ot 786.09 RESPIRATORY ABNORM NEC 11/01/2016 LIA العراقي MD Ot V72.84 EXAM PRE-OPERATIVE NOS 11/01/2016 Ot V76.12 OTH SCREEN MAMMO-MALIGN NEOPLASM OF LANE 11/01/2016 Ot 285.9 ANEMIA NOS 11/01/2016 Ot 578.1 BLOOD IN STOOL 11/01/2016 DEBBIE LOMBARDI APRN Ot R10.11 RIGHT UPPER QUADRANT PAIN 11/01/2016 JF DUKE MD Ot E78.0 PURE HYPERCHOLESTEROLEMIA 11/01/2016 JF DUKE MD Ot 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 11/01/2016 JF DUKE MD Ot I10 ESSENTIAL (PRIMARY) HYPERTENSION 11/01/2016 JF DUKE MD Ot I25.10 ATHSCL HEART DISEASE OF [place] CORONARY 11/01/2016 JF DUKE MD Ot I65.23 OCCLUSION AND STENOSIS OF BILATERAL [place] 11/01/2016 JF DUKE MD Ot R06.09 OTHER FORMS OF DYSPNEA 11/01/2016 EBER KEYES FACC, BENI FACP CCDS Ot 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 11/01/2016 EBER KEYES FACC, ALI FACP CCDS Ot I10 ESSENTIAL (PRIMARY) HYPERTENSION 11/01/2016 EBER KEYES FACC, ALI FACP CCDS Ot I25.10 ATHSCL HEART DISEASE OF [place] CORONARY 11/01/2016 EBER KEYES FACC, ALI FACP CCDS Ot I48.0 PAROXYSMAL ATRIAL FIBRILLATION 11/01/2016 EBER KEYES FACC, ALI FACP CCDS Ot I65.23 OCCLUSION AND STENOSIS OF BILATERAL [place] 11/01/2016 EBER KEYES FACC, ALI FACP CCDS Ot R41.0 DISORIENTATION, UNSPECIFIED 11/06/2016 RONALD TAVERAS MD Ot R06.09 OTHER FORMS OF DYSPNEA 11/06/2016 RONALD TAVERAS MD Ot R09.02 HYPOXEMIA 11/19/2016 EBER KEYES FAC, ALI FACP CCDS Ot I48.0 PAROXYSMAL ATRIAL FIBRILLATION 11/19/2016 EBER KEYES FACC, ALI FACP CCDS Ot I48.0 PAROXYSMAL ATRIAL FIBRILLATION 11/19/2016 EBER KEYES FACC, ALI FACP CCDS Ot I48.0 PAROXYSMAL ATRIAL FIBRILLATION 11/25/2016 EBER KEYES FACC, ALI FACP CCDS Ot G45.9 TRANSIENT CEREBRAL ISCHEMIC ATTACK, UNSP 11/25/2016 EBER KEYES FACC, ALI FACP CCDS Ot I48.0 PAROXYSMAL ATRIAL FIBRILLATION 11/25/2016 EBER KEYES FAC, ALI FACP CCDS Ot R06.02 SHORTNESS OF BREATH 11/25/2016 EBER KEYES FACDamion, ALI FACP CCDS Ot R53.83 OTHER FATIGUE 11/27/2016 Ot V72.84 EXAM PRE-OPERATIVE NOS 11/27/2016 Ot 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 11/27/2016 Ot V72.84 EXAM PRE-OPERATIVE NOS 11/27/2016 Ot V74.8 SCREEN-BACTERIAL DIS NEC 11/27/2016 Ot 285.9 ANEMIA NOS 11/27/2016 RONALD TAVERAS MD Ot 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 W O CEREBRAL IN 11/27/2016 RONALD TAVERAS MD Ot V76.12 OTH SCREEN MAMMO-MALIGN NEOPLASM OF LANE 11/27/2016 JF DUKE MD Ot 244.9 HYPOTHYROIDISM NOS 11/27/2016 JF DUKE MD Ot 397.0 TRICUSPID VALVE DISEASE 11/27/2016 JF DUKE MD Ot 401.9 HYPERTENSION NOS 11/27/2016 JF DUKE MD Ot 424.0 MITRAL VALVE DISORDER 11/27/2016 JF DUKE MD Ot 780.79 OTH MALAISE FATIGUE 11/27/2016 JF DUKE MD Ot 786.09 RESPIRATORY ABNORM NEC 11/27/2016 FJ DUKE MD Ot 401.9 HYPERTENSION NOS 11/27/2016 JF DUKE MD Ot 780.79 OTH MALAISE FATIGUE 11/27/2016 JF DUKE MD Ot 786.09 RESPIRATORY ABNORM NEC 11/27/2016 LIA العراقي MD Ot V72.84 EXAM PRE-OPERATIVE NOS 11/27/2016 Ot V76.12 OTH SCREEN MAMMO-MALIGN NEOPLASM OF LANE 11/27/2016 Ot 285.9 ANEMIA NOS 11/27/2016 Ot 578.1 BLOOD IN STOOL 11/27/2016 DEBBIE LOMBARDI APRN Ot R10.11 RIGHT UPPER QUADRANT PAIN 11/27/2016 JF DUKE MD Ot E78.0 PURE HYPERCHOLESTEROLEMIA 11/27/2016 JF DUKE MD Ot 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 11/27/2016 JF DUKE MD Ot I10 ESSENTIAL (PRIMARY) HYPERTENSION 11/27/2016 JF DUKE MD Ot I25.10 ATHSCL HEART DISEASE OF [place] CORONARY 11/27/2016 JF DUKE MD Ot I65.23 OCCLUSION AND STENOSIS OF [place]ILATERAL [place] 11/27/2016 JF DUKE MD Ot R06.09 OTHER FORMS OF DYSPNEA 11/27/2016 EBER KEYES FACC, BENI FACP CCDS Ot 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 11/27/2016 EBER KEYES FACC, ALI FACP CCDS Ot I10 ESSENTIAL (PRIMARY) HYPERTENSION 11/27/2016 EBER KEYES FACC, ALI FACP CCDS Ot I25.10 ATHSCL HEART DISEASE OF [place] CORONARY 11/27/2016 EBER KEYES FACC, ALI FACP CCDS Ot I48.0 PAROXYSMAL ATRIAL FIBRILLATION 11/27/2016 EBER KEYES FACC, ALI FACP CCDS Ot I65.23 OCCLUSION AND STENOSIS OF [place]ILATERAL [place] 11/27/2016 EBER KEYES FACC, ALI FACP CCDS Ot R41.0 DISORIENTATION, UNSPECIFIED 11/27/2016 RONALD TAVERAS MD Ot R06.09 OTHER FORMS OF DYSPNEA 11/27/2016 RONALD TAVERAS MD Ot R09.02 HYPOXEMIA 11/27/2016 EBER KEYES FACC, ALI FACP CCDS Ot G45.9 TRANSIENT CEREBRAL ISCHEMIC ATTACK, UNSP 11/27/2016 EBER KEYES FACC, ALI FACP CCDS Ot I48.0 PAROXYSMAL ATRIAL FIBRILLATION 11/27/2016 EBER KEYES FACC, ALI FACP CCDS Ot R06.02 SHORTNESS OF BREATH 11/27/2016 EBER KEYES FACC, ALI FACP CCDS Ot R53.83 OTHER FATIGUE 11/28/2016 RONALD TAVERAS MD Ot R06.09 OTHER FORMS OF DYSPNEA 11/28/2016 RONALD TAVERAS MD Ot R09.02 HYPOXEMIA 11/30/2016 RONALD TAVERAS MD Ot R93.5 ABN FINDINGS ON DX IMAGING OF ABD REGION 12/05/2016 RONALD TAVERAS MD Ot R93.5 ABN FINDINGS ON DX IMAGING OF ABD REGION 12/12/2016 EBER KEYES FACC, ALI FACP CCDS Ot G45.9 TRANSIENT CEREBRAL ISCHEMIC ATTACK, UNSP 12/12/2016 EBER KEYES FACC, ALI FACP CCDS Ot I48.0 PAROXYSMAL ATRIAL FIBRILLATION 12/12/2016 EBER KEYES FACC, ALI FACP CCDS Ot R06.02 SHORTNESS OF BREATH 12/12/2016 EBER KEYES FACC, ALI FACP CCDS Ot R53.83 OTHER FATIGUE 12/13/2016 Ot 285.9 ANEMIA NOS 12/13/2016 Ot 578.1 BLOOD IN STOOL 12/13/2016 Ot V72.84 EXAM PRE-OPERATIVE NOS 12/13/2016 Ot 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 12/13/2016 Ot V72.84 EXAM PRE-OPERATIVE NOS 12/13/2016 Ot V74.8 SCREEN-BACTERIAL DIS NEC 12/13/2016 Ot 285.9 ANEMIA NOS 12/13/2016 RONALD TAVERAS MD Ot 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 W O CEREBRAL IN 12/13/2016 RONALD TAVERAS MD Ot V76.12 OTH SCREEN MAMMO-MALIGN NEOPLASM OF LANE 12/13/2016 JF DUKE MD Ot 244.9 HYPOTHYROIDISM NOS 12/13/2016 JF UDKE MD Ot 397.0 TRICUSPID VALVE DISEASE 12/13/2016 JF DUKE MD Ot 401.9 HYPERTENSION NOS 12/13/2016 JF DUKE MD Ot 424.0 MITRAL VALVE DISORDER 12/13/2016 JF DUKE MD Ot 780.79 OTH MALAISE FATIGUE 12/13/2016 JF DUKE MD Ot 786.09 RESPIRATORY ABNORM NEC 12/13/2016 JF DUKE MD Ot 401.9 HYPERTENSION NOS 12/13/2016 JF DUKE MD Ot 780.79 OTH MALAISE FATIGUE 12/13/2016 JF DUKE MD Ot 786.09 RESPIRATORY ABNORM NEC 12/13/2016 LIA العراقي MD Ot V72.84 EXAM PRE-OPERATIVE NOS 12/13/2016 Ot V76.12 OTH SCREEN MAMMO-MALIGN NEOPLASM OF LANE 12/13/2016 Ot 285.9 ANEMIA NOS 12/13/2016 Ot 578.1 BLOOD IN STOOL 12/13/2016 HARJIT DEBBIEDevendra Durant APRN Ot R10.11 RIGHT UPPER QUADRANT PAIN 12/13/2016 JF DUKE MD Ot E78.0 PURE HYPERCHOLESTEROLEMIA 12/13/2016 JF DUKE MD Ot 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 12/13/2016 JF DUKE MD Ot I10 ESSENTIAL (PRIMARY) HYPERTENSION 12/13/2016 JF DUKE MD Ot I25.10 ATHSCL HEART DISEASE OF [place] CORONARY 12/13/2016 JF DUKE MD Ot I65.23 OCCLUSION AND STENOSIS OF BILATERAL [place] 12/13/2016 JF DUKE MD Ot R06.09 OTHER FORMS OF DYSPNEA 12/13/2016 EBER KEYES FACC, BENI FACP CCDS Ot 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 12/13/2016 EBER KEYES FACC, ALI FACP CCDS Ot I10 ESSENTIAL (PRIMARY) HYPERTENSION 12/13/2016 EBER KEYES FACC, ALI FACP CCDS Ot I25.10 ATHSCL HEART DISEASE OF [place] CORONARY 12/13/2016 EBER KEYES FACC, BENI FACP CCDS Ot I48.0 PAROXYSMAL ATRIAL FIBRILLATION 12/13/2016 EBER KEYES FACC, ALI FACP CCDS Ot I65.23 OCCLUSION AND STENOSIS OF [place]ILATERAL [place] 12/13/2016 EBER KEYES FACC, ALI FACP CCDS Ot R41.0 DISORIENTATION, UNSPECIFIED 12/13/2016 RONALD TAVERAS MD Ot R06.09 OTHER FORMS OF DYSPNEA 12/13/2016 RONALD TAVERAS MD Ot R09.02 HYPOXEMIA 12/13/2016 EBER KEYES FACC, BENI FACP CCDS Ot 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 12/13/2016 EBER KEYES FACC, ALI FACP CCDS Ot I48.0 PAROXYSMAL ATRIAL FIBRILLATION 12/13/2016 EBER KEYES FACC, ALI FACP CCDS Ot R06.02 SHORTNESS OF BREATH 12/13/2016 EBER KEYES FACC, ALI FACP CCDS Ot R53.83 OTHER FATIGUE 12/13/2016 EBER KEYES [facility], ALI FACP CCDS Ot G45.9 TRANSIENT CEREBRAL ISCHEMIC ATTACK, UNSP 12/13/2016 EBER KEYES [facility], ALI FACP CCDS Ot I48.0 PAROXYSMAL ATRIAL FIBRILLATION 12/13/2016 EBER KEYES [facility], ALI FACP CCDS Ot R06.02 SHORTNESS OF BREATH 12/13/2016 EBER KEYES [facility], ALI FACP CCDS Ot R53.83 OTHER FATIGUE 12/13/2016 RONALD TAVERAS MD Ot R93.5 ABN FINDINGS ON DX IMAGING OF ABD REGION 12/13/2016 NAYAN HERNANDEZ MD Ot I10 ESSENTIAL (PRIMARY) HYPERTENSION 12/13/2016 NAYAN HERNANDEZ MD Ot I48.2 CHRONIC ATRIAL FIBRILLATION 12/13/2016 NAYAN HERNANDEZ MD Ot S09.90XA UNSPECIFIED INJURY OF HEAD, INITIAL ENCO 12/13/2016 NAYAN HERNANDEZ MD Ot W01.0XXA FALL SAME LEV FROM SLIP/TRIP W/O STRIKE 12/13/2016 NAYAN HERNANDEZ MD Ot Y92.[address] 12/13/2016 NAYAN HERNANDEZ MD Ot Y99.8 OTHER EXTERNAL CAUSE STATUS 12/13/2016 NAYAN HERNANDEZ MD Ot Z79.01 SHELTER (CURRENT) USE OF ANTICOAGULANT 12/13/2016 NAYAN HERNANDEZ MD Ot 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 12/13/2016 Ot V72.84 EXAM PRE-OPERATIVE NOS 12/13/2016 Ot 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 12/13/2016 Ot V72.84 EXAM PRE-OPERATIVE NOS 12/13/2016 Ot V74.8 SCREEN-BACTERIAL DIS NEC 12/13/2016 Ot 285.9 ANEMIA NOS 12/13/2016 RONALD TAVERAS MD Ot 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 W O CEREBRAL IN 12/13/2016 RONALD TAVERAS MD Ot V76.12 OTH SCREEN MAMMO-MALIGN NEOPLASM OF LANE 12/13/2016 JF DUKE MD Ot 244.9 HYPOTHYROIDISM NOS 12/13/2016 JF DUKE MD Ot 397.0 TRICUSPID VALVE DISEASE 12/13/2016 JF DUKE MD Ot 401.9 HYPERTENSION NOS 12/13/2016 JF DUKE MD Ot 424.0 MITRAL VALVE DISORDER 12/13/2016 JF DUKE MD Ot 780.79 OTH MALAISE FATIGUE 12/13/2016 JF DUKE MD Ot 786.09 RESPIRATORY ABNORM NEC 12/13/2016 JF DUKE MD Ot 401.9 HYPERTENSION NOS 12/13/2016 JF DUKE MD Ot 780.79 OTH MALAISE FATIGUE 12/13/2016 JF DUKE MD Ot 786.09 RESPIRATORY ABNORM NEC 12/13/2016 LIA العراقي MD Ot V72.84 EXAM PRE-OPERATIVE NOS 12/13/2016 Ot V76.12 OTH SCREEN MAMMO-MALIGN NEOPLASM OF LANE 12/13/2016 Ot 285.9 ANEMIA NOS 12/13/2016 Ot 578.1 BLOOD IN STOOL 12/13/2016 DEBBIE LOMBARDI APRN Ot R10.11 RIGHT UPPER QUADRANT PAIN 12/13/2016 JF DUKE MD Ot E78.0 PURE HYPERCHOLESTEROLEMIA 12/13/2016 JF DUKE MD Ot 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 12/13/2016 JF DUKE MD Ot I10 ESSENTIAL (PRIMARY) HYPERTENSION 12/13/2016 JF DUKE MD Ot I25.10 ATHSCL HEART DISEASE OF [place] CORONARY 12/13/2016 JF DUKE MD Ot I65.23 OCCLUSION AND STENOSIS OF [place] 12/13/2016 JF DUKE MD Ot R06.09 OTHER FORMS OF DYSPNEA 12/13/2016 EBER KEYES FACC, BENI WILLIAMP CCDS Ot 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 12/13/2016 EBER KEYES FACC, ALI FACP CCDS Ot I10 ESSENTIAL (PRIMARY) HYPERTENSION 12/13/2016 EBER KEYES FACC, ALI FACP CCDS Ot I25.10 ATHSCL HEART DISEASE OF [place] CORONARY 12/13/2016 EBER KEYES FACC, BENI FACP CCDS Ot I48.0 PAROXYSMAL ATRIAL FIBRILLATION 12/13/2016 EEBR KEYES FACC, ALI FACP CCDS Ot I65.23 OCCLUSION AND STENOSIS OF [place]IL[place]AL [place] 12/13/2016 EBER KEYES FACC, ALI FACP CCDS Ot R41.0 DISORIENTATION, UNSPECIFIED 12/13/2016 RONALD TAVERAS MD Ot R06.09 OTHER FORMS OF DYSPNEA 12/13/2016 RONALD TAVERAS MD Ot R09.02 HYPOXEMIA 12/13/2016 EBER KEYES FACC, ALI FACP CCDS Ot 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 12/13/2016 EBER KEYES FACC, ALI FACP CCDS Ot I48.0 PAROXYSMAL ATRIAL FIBRILLATION 12/13/2016 EBER KEYES FACC, ALI FACP CCDS Ot R06.02 SHORTNESS OF BREATH 12/13/2016 EBER KEYES FACC, ALI FACP CCDS Ot R53.83 OTHER FATIGUE 12/13/2016 EBER KEYES FACC, ALI FACP CCDS Ot G45.9 TRANSIENT CEREBRAL ISCHEMIC ATTACK, UNSP 12/13/2016 EBER KEYES FACC, ALI FACP CCDS Ot I48.0 PAROXYSMAL ATRIAL FIBRILLATION 12/13/2016 EBER KEYES FACC, ALI FACP CCDS Ot R06.02 SHORTNESS OF BREATH 12/13/2016 EBER KEYES FACC, ALI FACP CCDS Ot R53.83 OTHER FATIGUE 12/13/2016 RONALD TAVERAS MD Ot R93.5 ABN FINDINGS ON DX IMAGING OF ABD REGION 12/14/2016 Ot V72.84 EXAM PRE-OPERATIVE NOS 12/14/2016 Ot 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 12/14/2016 Ot V72.84 EXAM PRE-OPERATIVE NOS 12/14/2016 Ot V74.8 SCREEN-BACTERIAL DIS NEC 12/14/2016 Ot 285.9 ANEMIA NOS 12/14/2016 RONALD TAVERAS MD Ot 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 W O CEREBRAL IN 12/14/2016 RONALD TAVERAS MD Ot V76.12 OTH SCREEN MAMMO-MALIGN NEOPLASM OF LANE 12/14/2016 JF DUKE MD Ot 244.9 HYPOTHYROIDISM NOS 12/14/2016 JF DUKE MD Ot 397.0 TRICUSPID VALVE DISEASE 12/14/2016 JF DUKE MD Ot 401.9 HYPERTENSION NOS 12/14/2016 JF DUKE MD Ot 424.0 MITRAL VALVE DISORDER 12/14/2016 JF DUKE MD Ot 780.79 OTH MALAISE FATIGUE 12/14/2016 JF DUKE MD Ot 786.09 RESPIRATORY ABNORM NEC 12/14/2016 JF DUKE MD Ot 401.9 HYPERTENSION NOS 12/14/2016 JF DUKE MD Ot 780.79 OTH MALAISE FATIGUE 12/14/2016 JF DUKE MD Ot 786.09 RESPIRATORY ABNORM NEC 12/14/2016 LIA العراقي MD Ot V72.84 EXAM PRE-OPERATIVE NOS 12/14/2016 Ot V76.12 OTH SCREEN MAMMO-MALIGN NEOPLASM OF LANE 12/14/2016 Ot 285.9 ANEMIA NOS 12/14/2016 Ot 578.1 BLOOD IN STOOL 12/14/2016 DEBBIE LOMBARDI APRN Ot R10.11 RIGHT UPPER QUADRANT PAIN 12/14/2016 JF DUKE MD Ot E78.0 PURE HYPERCHOLESTEROLEMIA 12/14/2016 JF DUKE MD Ot 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 12/14/2016 JF DUKE MD Ot I10 ESSENTIAL (PRIMARY) HYPERTENSION 12/14/2016 JF DUKE MD Ot I25.10 ATHSCL HEART DISEASE OF [place] CORONARY 12/14/2016 JF DUKE MD Ot I65.23 OCCLUSION AND STENOSIS OF BILATERAL [place] 12/14/2016 JF DUKE MD Ot R06.09 OTHER FORMS OF DYSPNEA 12/14/2016 EBER KEYES FACC, BENI FACP CCDS Ot 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 12/14/2016 EBER KEYES FACC, ALI FACP CCDS Ot I10 ESSENTIAL (PRIMARY) HYPERTENSION 12/14/2016 EBER KEYES FACC, ALI FACP CCDS Ot I25.10 ATHSCL HEART DISEASE OF [place] CORONARY 12/14/2016 EBER KEYES FACC, ALI FACP CCDS Ot I48.0 PAROXYSMAL ATRIAL FIBRILLATION 12/14/2016 EBER KEYES FACC, ALI FACP CCDS Ot I65.23 OCCLUSION AND STENOSIS OF BILATERAL [place] 12/14/2016 EBER KEYES FACC, ALI FACP CCDS Ot R41.0 DISORIENTATION, UNSPECIFIED 12/14/2016 RONALD TAVERAS MD Ot R06.09 OTHER FORMS OF DYSPNEA 12/14/2016 RONALD TAVERAS MD Ot R09.02 HYPOXEMIA 12/14/2016 EBER KEYES FACC, ALI FACP CCDS Ot 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 12/14/2016 EBER KEYES FACC, ALI FACP CCDS Ot I48.0 PAROXYSMAL ATRIAL FIBRILLATION 12/14/2016 EBER KEYES FACC, BENI FACP CCDS Ot R06.02 SHORTNESS OF BREATH 12/14/2016 EBER KEYES FACC, BENI FACP CCDS Ot R53.83 OTHER FATIGUE 12/14/2016 EBER KEYES FACC, ALI FACP CCDS Ot G45.9 TRANSIENT CEREBRAL ISCHEMIC ATTACK, UNSP 12/14/2016 EBER KEYES FACC, BENI FACP CCDS Ot I48.0 PAROXYSMAL ATRIAL FIBRILLATION 12/14/2016 EBER KEYES FACC, BENI FACP CCDS Ot R06.02 SHORTNESS OF BREATH 12/14/2016 EBER KEYES FACC, BENI FACP CCDS Ot R53.83 OTHER FATIGUE 12/14/2016 RONALD TAVERAS MD Ot R93.5 ABN FINDINGS ON DX IMAGING OF ABD REGION 12/20/2016 RONALD TAVERAS MD Ot R93.5 ABN FINDINGS ON DX IMAGING OF ABD REGION 12/20/2016 RONALD TAVERAS MD Ot R10.2 PELVIC AND PERINEAL PAIN 12/21/2016 RONALD TAVERAS MD Ot R10.2 PELVIC AND PERINEAL PAIN 12/23/2016 NAYAN HERNANDEZ MD Ot I10 ESSENTIAL (PRIMARY) HYPERTENSION 12/23/2016 NAYAN HERNANDEZ MD Ot I48.2 CHRONIC ATRIAL FIBRILLATION 12/23/2016 NAYAN HERNANDEZ MD Ot S09.90XA UNSPECIFIED INJURY OF HEAD, INITIAL ENCO 12/23/2016 NAYAN HERNANDEZ MD Ot W01.0XXA FALL SAME LEV FROM SLIP/TRIP W/O STRIKE 12/23/2016 NAYAN HERNANDEZ MD Ot Y92.[address] 12/23/2016 NAYAN HERNANDEZ MD Ot Y99.8 OTHER EXTERNAL CAUSE STATUS 12/23/2016 NAYAN HERNANDEZ MD Ot Z79.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 (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) USE OF ANTICOAGULANT 12/23/2016 NAYAN HERNANDEZ MD Ot 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 12/31/2016 BENI VELÁZQUEZ MD, FACCP CCDS Ot 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 12/31/2016 EBER KEYES FACC, BENI WILLIAMP CCDS Ot I48.0 PAROXYSMAL ATRIAL FIBRILLATION 12/31/2016 BENI VELÁZQUEZ MD, FACCP CCDS Ot R06.02 SHORTNESS OF BREATH 12/31/2016 EBER KEYES [facility] CCDS Ot R53.83 OTHER FATIGUE 01/08/2017 NITIN KEYES, RONALD Rooney Ot R10.2 PELVIC AND PERINEAL PAIN Procedures Code Description Performed By Performed On 48.63 12/14/2005 85.43 06/17/2006 38.93 11/28/2006 54.59 11/28/2006 17.33 LAPAROSCOPIC RIGHT HEMICOLECTOMY 05/29/2012 38.93 VENOUS CATHETERIZATION NEC 05/29/2012 45.93 [id number] BOWEL NEC 05/29/2012 Results Test Result Range Complete blood count (CBC) with automated white blood cell (WBC) differential - 02/17/16 16:00 Blood leukocytes automated count (number/volume) 5.7 10*3/ uL 4.3-11.0 Blood erythrocytes automated count (number/volume) 4.15 10*6 /uL 4.35-5.85 Venous blood hemoglobin measurement (mass/volume) 11.0 g/dL 11.5-16.0 Blood hematocrit (volume fraction) 35 % 35-52 Automated erythrocyte mean corpuscular volume 83 [foz_us] 80-99 Automated erythrocyte mean corpuscular hemoglobin (mass per erythrocyte) 27 pg 25-34 Automated erythrocyte mean corpuscular hemoglobin concentration measurement ( mass/volume) 32 g/dL 32-36 Automated erythrocyte distribution width ratio 15.3 % 10.0-14.5 Automated blood platelet count (count/volume) 187 10*3/uL 130-400 Automated blood platelet mean volume measurement 9.9 [foz_us ] 7.4-10.4 Automated blood neutrophils/100 leukocytes 48 % 42-75 Automated blood lymphocytes/100 leukocytes 35 % 12-44 Blood monocytes/100 leukocytes 16 % 0-12 Automated blood eosinophils/100 leukocytes 2 % 0-10 Automated blood basophils/100 leukocytes 0 % 0-10 Blood neutrophils automated count (number/volume) 2.7 10*3 1.8-7.8 Blood lymphocytes automated count (number/volume) 2.0 10*3 1.0-4.0 Blood monocytes automated count (number/volume) 0.9 10*3 0.0-1.0 Automated eosinophil count 0.1 10*3/uL 0.0-0.3 Automated blood basophil count (count/volume) 0.0 10*3/uL 0.0-0.1 Comprehensive metabolic panel - 02/17/16 16:00 Serum or plasma sodium measurement (moles/volume) 136 mmol/ L 135-145 Serum or plasma potassium measurement (moles/volume) 4.0 mmol/L 3.6-5.0 Serum or plasma chloride measurement (moles/volume) 104 mmol /L 98-107 Carbon dioxide 27 mmol/L 21-32 Serum or plasma anion gap determination (moles/volume) 5 mmol/L 5-14 Serum or plasma urea nitrogen measurement (mass/volume) 20 mg/dL 7-18 Serum or plasma creatinine measurement (mass/volume) 0.79 mg /dL 0.60-1.30 Serum or plasma urea nitrogen/creatinine mass ratio 25 NRG Serum or plasma creatinine measurement with calculation of estimated glomerular filtration rate > NRG Serum or plasma glucose measurement (mass/volume) 96 mg/dL 70-105 Serum or plasma calcium measurement (mass/volume) 9.6 mg/dL 8.5-10.1 Serum or plasma total bilirubin measurement (mass/volume) 0.2 mg/dL 0.1-1.0 Serum or plasma alkaline phosphatase measurement (enzymatic activity/volume) 58 U/L 40-136 Serum or plasma aspartate aminotransferase measurement (enzymatic activity/ volume) 26 U/L 5-34 Serum or plasma alanine aminotransferase measurement (enzymatic activity/volume ) 21 U/L 0-55 Serum or plasma protein measurement (mass/volume) 7.2 g/dL 6.4-8.2 Serum or plasma albumin measurement (mass/volume) 3.8 g/dL 3.2-4.5 Complete urinalysis with reflex to culture - 02/17/16 16:12 Urine color determination YELLOW NRG Urine clarity determination CLEAR NRG Urine pH measurement by test strip 6 5- 9 Specific gravity of urine by test strip 1.015 1.016-1.022 Urine protein assay by test strip, semi-quantitative NEGATIVE NEGATIVE Urine glucose detection by automated test strip NEGATIVE NEGATIVE Erythrocytes detection in urine sediment by light microscopy 2+ NEGATIVE Urine ketones detection by automated test strip NEGATIVE NEGATIVE Urine nitrite detection by test strip NEGATIVE NEGATIVE Urine total bilirubin detection by test strip NEGATIVE NEGATIVE Urine urobilinogen measurement by automated test strip (mass/volume) NORMAL NORMAL Urine leukocyte esterase detection by dipstick NEGATIVE NEGATIVE Automated urine sediment erythrocyte count by microscopy (number/high power field) [HPF] NRG Automated urine sediment leukocyte count by microscopy (number/high power field ) [HPF] NRG Bacteria detection in urine sediment by light microscopy NEGATIVE NRG Squamous epithelial cells detection in urine sediment by light microscopy NONE NRG Crystals detection in urine sediment by light microscopy NONE NRG Casts detection in urine sediment by light microscopy NONE NRG Mucus detection in urine sediment by light microscopy NEGATIVE NRG Complete urinalysis with reflex to culture NO NRG Encounters ACCT No. Visit Date/Time Discharge Status Pt. Type Provider Facility Loc./Unit Complaint [id number] 12/13/2016 09:41:00 2016 11:23:00 DIS Emergency DAVID KEYES, NAYAN Rooney [facility] ER FALL/HEAD INJURY [id number] 02/17/2016 15:12:00 2015 17:02:00 DIS Emergency DAFNE SOTO MD [facility] ER DIZZINESS [id number] 01/01/2016 11:31:00 2015 14:36:00 DIS Emergency KAREN ZELAYA [facility] ER MULTIPLE FALLS [id number] 10/13/2015 12:36:00 2015 13:43:00 DIS Outpatient DEBBIE LOMBARDI APRN [facility] REHAB R SCIATICA [id number] 05/09/2015 09:20:00 2014 23:59:59 CLS Outpatient LEILANI KEYES, JF Nolan [facility] HH CHOLESTEROLEMIA [id number] 05/01/2015 14:28:00 2014 15:15:00 DIS Inpatient NITIN KEYES, RONALD Rooney [facility] 4TH TIA [id number] 04/28/2015 09:37:00 2014 23:59:59 CLS Outpatient DEBBIE LOMBARDI APRN [facility] RAD UPPER RUQ PAIN [id number] 06/29/2014 08:34:00 2013 23:59:59 CLS Outpatient DEBBIE LOMBARDI APRN [facility] LAB BLOOD IN STOOL, ANEMIA [id number] 06/28/2014 14:34:00 2013 22:30:00 DIS Outpatient DEBBIE LOMBARDI Bhargav BARR [facility] SURG RCR ANEMIA [id number] 01/13/2014 08:15:00 2013 13:40:00 DIS Outpatient LIA العراقي MD [facility] SDC BLOODY STOOLS [id number] 01/07/2014 07:46:00 2013 23:59:59 CLS Outpatient LIA العراقي MD [facility] PREOP BLOODY STOOL [id number] 01/04/2014 08:18:00 2013 23:59:59 CLS Outpatient JF DUKE MD [facility] CARD DYSPNEA,HTN,HYPERTHYROIDISM,FATIGUE [id number] 01/01/2014 08:43:00 2013 23:59:59 CLS Outpatient JF DUKE MD [facility] CARD DYSPNEA,HTN,HYPERTHYROIDISM,FATIGUE [id number] 09/08/2013 09:18:00 2013 23:59:59 CLS Outpatient RONALD TAVERAS MD [facility] RAD SCREENING,TIA,CAROTID BRUIT [id number] 12/14/2016 13:04:00 ACT Outpatient RONALD TAVERAS MD [facility] RAD ABNORMAL CT/PELVIC PAIN [id number] 11/29/2016 13:07:00 ACT Outpatient RONALD TAVERAS MD [facility] RAD R10.30 [id number] 11/27/2016 08:16:00 ACT Outpatient BENI VELÁZQUEZ MD, FACC, FACP CCDS [facility] CARD R53.83,I48.0,G45.2 [id number] 11/19/2016 10:41:00 ACT Outpatient BENI VELÁZQUEZ MD, FACC, FACP CCDS [facility] CARD R53.83,I48.0,G45.2 [id number] 11/01/2016 14:29:00 ACT Outpatient RONALD TAVERAS MD [facility] RAD DYSPNEA [id number] 12/06/2015 12:01:00 ACT Outpatient EBER KEYES FACC, BENI SCHMITT CCDS [facility] RAD TIA,CONFUSION,HTN,CAD [id number] 11/23/2015 14:26:00 Document Registration [id number] 11/23/2015 14:26:00 Document Registration [id number] 11/23/2015 14:26:00 Document Registration [id number] 11/23/2015 14:26:00 Document Registration [id number] 11/23/2015 14:26:00 Document Registration [id number] 11/23/2015 14:26:00 Document Registration [id number] 08/31/2015 09:42:00 ACT Outpatient LEILANI KEYES, FJ Nolan [facility] CARD CAD,DYPNEA,HTN, TIA [id number] 09/27/2014 00:00:00 Document Registration [id number] 09/09/2014 15:06:00 Document Registration [id number] 07/28/2012 08:41:00 Document Registration [id number] 06/11/2012 11:40:00 Document Registration [id number] 05/29/2012 08:51:00 Document Registration [id number] 05/26/2012 11:52:00 Document Registration [id number] 05/16/2012 07:47:00 Document Registration [id number] 05/05/2012 09:34:00 Document Registration [id number] 05/02/2012 08:14:00 Document Registration [id number] 04/26/2011 09:05:00 Document Registration [id number] 11/07/2010 08:22:00 Document Registration [id number] 02/04/2010 09:44:00 Document Registration [id number] 01/09/2010 10:00:00 Document Registration [id number] 12/22/2009 08:47:00 Document Registration [id number] 03/09/2009 09:00:00 Document Registration [id number] 11/02/2008 09:20:00 Document Registration [id number] 08/02/2008 09:25:00 Document Registration [id number] 10/30/2007 10:27:00 Document Registration [id number] 11/27/2006 15:16:00 Document Registration [id number] 10/28/2006 09:48:00 Document Registration [id number] 06/17/2006 11:08:00 Document Registration [id number] 06/10/2006 09:48:00 Document Registration [id number] 05/07/2006 09:28:00 Document Registration [id number] 04/30/2006 16:41:00 Document Registration [id number] 04/17/2006 09:58:00 Document Registration [id number] 02/05/2006 09:57:00 Document Registration [id number] 12/14/2005 06:10:00 Document Registration
== END 2017-01-15 09:07 | disposition home or self-care (01) ==
LOC: EDUNIT# 07:04 → ER 07:07
DX: S00.11XA Contusion of right eyelid and periocular area, initial encounter (principal); I10 Essential (primary) hypertension; E03.9 Hypothyroidism, unspecified; D64.9 Anemia, unspecified; E78.00 Pure hypercholesterolemia, unspecified; Z23 Encounter for immunization; Z79.01 Long term (current) use of anticoagulants; W18.30XA Fall on same level, unspecified, initial encounter
CPT/HCPCS: 70450; 72125; 90471; 90715; 99283

== ENCOUNTER → 2017-01-15 | Outpatient (CLI) | payer MEDICARE ==
[2017-01-15 19:44] LABS: BILIRUBIN,URINE NEGATIVE (NEGATIVE); KETONES,URINE NEGATIVE (NEGATIVE); LEUKOCYTE ESTERASE ,URINE 1+ (NEGATIVE); NITRITE,URINE NEGATIVE (NEGATIVE); PH,URINE 6.5 (5-9); PROTEIN,URINE NEGATIVE (NEGATIVE); UROBILINOGEN,URINE NORMAL (NORMAL)
[2017-01-15 20:04] LABS: WBC,URINE 0-2 /HPF
== END ==
LOC: MNL 19:35
PROVIDERS: ATTEND Nurse Practitioner
DX: N39.0 Urinary tract infection, site not specified (principal)
CPT/HCPCS: 81000; 87088

== ENCOUNTER 2017-02-08 20:11 | Inpatient (IN) | payer MEDICARE ==
[~2017-02-08] VITALS: Ht 170.2 cm; Wt 60.3 kg
--- NOTE | 2017-02-08 20:41 | Diagnostic Imaging Report ---
EXAM: CT head w/o contrast, r/o STROKE. INDICATION: STROKE. COMPARISON: CT head without contrast from 01/15/2017. FINDINGS: No intracranial hemorrhage, mass effect, hydrocephalus or extra-axial fluid collections. No CT evidence of an acute infarction. Moderate to advanced generalized cerebral and cerebellar parenchymal volume loss. Intracranial vascular calcifications. Moderate leukoaraiosis. Osseous structures are intact. Opacification of the frontal sinuses is stable. The mastoids are clear. The orbits are unremarkable. IMPRESSION: No acute intracranial CT findings. Dictated by: Dictated on workstation # [id number]
--- NOTE | 2017-02-08 20:51 | Diagnostic Imaging Report ---
EXAM: CHEST 1 VIEW, AP/PA ONLY INDICATION: Stroke. Confusion. COMPARISON: Chest radiograph 11/01/2016. FINDINGS: Allowing for differences in lung volume and technique, the heart size and pulmonary vascularity are stable. No focal pulmonary opacity, pleural effusion or pneumothorax. Postoperative changes in the left breast. No acute osseous findings. No significant change. IMPRESSION: No acute cardiopulmonary findings. Dictated by: Dictated on workstation # [id number]
--- NOTE | 2017-02-08 21:15 | ED Neurological Problem ---
General Chief Complaint: Neuro-Stroke Like Symptoms Stated Complaint: CONFUSION Nursing Triage Note: Patient had a head injury 1 month ago and woke up this morning about 0640 with confusion and couldn't get her words out correctly and wasn't able to dress herself. staff and winifred ochoaa notified Dr. Smith TICKET COLLECTOR and received at , patient was evaluated by TICKET COLLECTOR and lab was obtained. per daughter UA was negative Nursing Sepsis Screen: No Definite Risk Source: patient, family Exam Limitations: no limitations (THUY RANGEL APRN) History of Present Illness Time seen by provider: 21:11 Initial Comments To ER accompanied by her daughter after staff at [facility] noted the patient to be very confused. The patient is normally alert and oriented. However this morning upon awakening at about 645 staff noted she was unable to dress herself and was confused and had garbled speech. Patient has a history of episodes like this off and on but the daughter states they typically resolve entirely over the course of about 4-6 hours. At this point we are about 14 hours and to this episode of confusion without resolution. She is on Eliquis for history of atrial fibrillation. She did apparently complain of abdominal pain this morning as well. Severity: moderate (THUY RANGEL APRN) Allergies and Home Medications Allergies Coded Allergies: aspirin (Verified Allergy, Unknown, 05/01/15) niacin (Verified Allergy, Unknown, 05/01/15) clopidogrel (Verified Adverse Reaction, Unknown, INTERNAL BLEEDING , 05/01) Uncoded Allergies: BERLANTA (Allergy, Severe, ASTHMA, 12/13/16) Home Medications Amlodipine Besylate 2.5 Mg Tablet, 2.5 MG PO DAILY, (Reported) Atorvastatin Calcium 20 Mg Tablet, 20 MG PO DAILY, #30 Prescribed by: GAGE DOMINGUEZ on 05/02/15 1425 Calcium Carbonate/Vitamin D3 1 Each Tablet, 1 TAB PO DAILY, (Reported) Cyanocobalamin 1,000 Mcg Tablet.sa, 1,000 MCG PO DAILY, (Reported) Levothyroxine Sodium 75 Mcg Tablet, 75 MCG PO DAILY, (Reported) Multivitamin 1 Each Tablet, 1 TAB PO DAILY, (Reported) Nitrofurantoin Monohyd/M-Cryst 100 Mg Capsule, 1 TAB PO BID, #14 Ref 0 Prescribed by: KAREN MERCEDES on 01/01/16 1341 [place]-3/Dha/Epa/Fish Oil 1 Each Capsule, 3,000 MG PO DAILY, (Reported) TAKES 3 (1000MG) CAPSULES Pyridoxine Hcl 100 Mg Tablet, 100 MG PO DAILY, (Reported) Vitamins A and D 1 Each Capsule, 1 CAP PO DAILY, (Reported) [Eliquis] , (Reported) Constitutional: see HPI, No chills, No fever Eyes: No Symptoms Reported Ears, Nose, Mouth, Throat: no symptoms reported Respiratory: no symptoms reported Cardiovascular: no symptoms reported Genitourinary: no symptoms reported Musculoskeletal: no symptoms reported Skin: no symptoms reported Psychiatric/Neurological: No Symptoms Reported (THUY RANGEL APRN) Past Tpwwthy-Zwooyo-Yfctab Hx Patient Social History Alcohol Use: Denies Use Recreational Drug Use: No Smoking Status: Never a Smoker Recent Foreign Travel: No Contact w/Someone Who Travel: No Recent Infectious Disease Expo: No Recent Hopitalizations: No (THUY RANGEL APRN) Immunizations Up To Date Tetanus Booster (TDap): Unknown Date of Pneumonia Vaccine: Oct 11, 2014 Date of Influenza Vaccine: May 27, 2012 (THUY RANGEL APRN) Surgeries HX Surgeries: Yes (COLONOSCOPY 02/24, COLECTOMY 02/24, NASAL POLYPS REMOVED, LT MASTECTOMY) (THUY RANGEL APRN) Respiratory Hx Respiratory Disorders: No (THUY RANGEL APRN) Cardiovascular Hx Cardiac Disorders: Yes Cardiac Disorders: Atrial Fibrillation, High Cholesterol, Hypertension (THUY RANGEL APRN) Neurological Hx Neurological Disorders: Yes (CONFUSION X4 (UTI VS TIA)) Neurological Disorders: TIA (THUY RANGEL APRN) Reproductive System Hx Reproductive Disorders: No Sexually Transmitted Disease: No (THUY RANGEL APRN) Genitourinary Hx Genitourinary Disorders: Yes (UTI) (THUY RANGEL APRN) Gastrointestinal Hx Gastrointestinal Disorders: Yes (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) Gastrointestinal Disorders: Hemorrhoids, Polyps (THUY RANGEL APRN) Musculoskeletal Hx Musculoskeletal Disorders: Yes Musculoskeletal Disorders: Arthritis (THUY RANGEL APRN) Endocrine Hx Endocrine Disorders: Yes Endocrine Disorders: Hypothyroidsim (THUY RANGEL APRN) HEENT HX ENT Disorders: Yes (LT EYE LAZY, RT EYE CATARACT REMOVED ) (THUY RANGEL APRN) Cancer Hx Cancer: No (THUY RANGEL APRN) Psychosocial Hx Psychiatric Problems: No (THUY RANGEL APRN) Integumentary HX Skin/Integumentary Disorder: No (THUY RANGEL APRN) Blood Transfusions Hx Blood Disorders: Yes ("SLIGHT ANEMIA" ) Adverse Reaction to a Blood Tr: No (THUY RANGEL APRN) Family Medical History Significant Family History: No Pertinent Family Hx Family Medial History: Diabetes mellitus G8 SISTER G8 SISTER (THUY RANGEL APRN) Family Medial History: Diabetes mellitus G8 SISTER G8 SISTER (NAYAN HERNANDEZ MD) Physical Exam Vital Signs Vital Sign - Last 12Hours 02/08/17 20:17 Temp 98.2 Pulse 62 Resp 18 B/P (MAP) 153/83 Pulse Ox 97 (NAYAN HERNANDEZ MD) Vital Signs Capillary Refill : Less Than 3 Seconds (THUY RANGEL APRN) General Appearance: WD/WN, no apparent distress, other (Patient is alert sitting upright in the bed with her eyes open. To any question that I ask, her answer is "I'm okay". She is able to follow some commands such as holding her arms and keeping them there without moving. However, she is unable to recite the year or her location or what brought her to the emergency room. She was ambulatory to room 3 ) HEENT: PERRL/EOMI, normal ENT inspection Neck: non-tender, full range of motion Respiratory: no respiratory distress, no accessory muscle use Cardiovascular: regular rate, rhythm, no murmur Gastrointestinal: normal bowel sounds, non tender, soft Neurologic/Psychiatric: alert, No facial droop, No motor weakness, disoriented x 3 Crainal Nerves: normal hearing, PERRL (THUY RANGEL APRN) Progress/Results/Core Measures Results/Orders Lab Results Laboratory Tests Test 02/08/17 21:10 02/08/17 22:45 Range/Units White Blood Count 7.0 4.3-11.0 10^3/uL Red Blood Count 3.07 L 4.35-5.85 10^6/uL Hemoglobin 8.1 L 11.5-16.0 G/DL Hematocrit 26 L 35-52 % Mean Corpuscular Volume 85 80-99 FL Mean Corpuscular Hemoglobin 26 25-34 PG Mean Corpuscular Hemoglobin Concent 31 L 32-36 G/DL Red Cell Distribution Width 16.3 H 10.0-14.5 % Platelet Count 194 130-400 10^3/uL Mean Platelet Volume 10.3 7.4-10.4 FL Neutrophils (%) (Auto) 56 42-75 % Lymphocytes (%) (Auto) 33 12-44 % Monocytes (%) (Auto) 11 0-12 % Eosinophils (%) (Auto) 1 0-10 % Basophils (%) (Auto) 0 0-10 % Neutrophils # (Auto) 3.9 1.8-7.8 X 10^3 Lymphocytes # (Auto) 2.3 1.0-4.0 X 10^3 Monocytes # (Auto) 0.8 0.0-1.0 X 10^3 Eosinophils # (Auto) 0.0 0.0-0.3 10^3/uL Basophils # (Auto) 0.0 0.0-0.1 10^3/uL Sodium Level 132 L 135-145 MMOL/L Potassium Level 3.9 3.6-5.0 MMOL/L Chloride Level 100 98-107 MMOL/L Carbon Dioxide Level 23 21-32 MMOL/L Anion Gap 9 5-14 MMOL/L Blood Urea Nitrogen 20 H 7-18 MG/DL Creatinine 0.82 0.60-1.30 MG/DL Estimat Glomerular Filtration Rate > 60 BUN/Creatinine Ratio 24 Glucose Level 131 H 70-105 MG/DL Calcium Level 8.9 8.5-10.1 MG/DL Total Bilirubin 0.4 0.1-1.0 MG/DL Aspartate Amino Transf (AST/SGOT) 66 H 5-34 U/L Alanine Aminotransferase (ALT/SGPT) 63 H 0-55 U/L Alkaline Phosphatase 378 H 40-136 U/L Total Protein 7.4 6.4-8.2 GM/DL Albumin 3.0 L 3.2-4.5 GM/DL Lipase 11 8-78 U/L Urine Color YELLOW Urine Clarity CLEAR Urine pH 7 5-9 Urine Specific [place] 1.005 L 1.016-1.022 Urine Protein NEGATIVE NEGATIVE Urine Glucose (UA) NEGATIVE NEGATIVE Urine Ketones NEGATIVE NEGATIVE Urine Nitrite NEGATIVE NEGATIVE Urine Bilirubin NEGATIVE NEGATIVE Urine Urobilinogen NORMAL NORMAL MG/DL Urine Leukocyte Esterase NEGATIVE NEGATIVE Urine RBC (Auto) NEGATIVE NEGATIVE Urine RBC NONE /HPF Urine WBC RARE /HPF Urine Crystals NONE /LPF Urine Bacteria NEGATIVE /HPF Urine Casts NONE /LPF Urine Mucus NEGATIVE /LPF Urine Culture Indicated NO (NAYAN HERNANDEZ MD) My Orders Orders - NAYAN HERNANDEZ MD Vital Signs - Stroke Q15M (02/08/17 20:23) Ct Head Wo-R/O Stroke (02/08/17 20:23) Monitor-Rhythm Ecg Trace Only (02/08/17 20:23) Dysphagia Screening Tool (02/08/17 20:23) Ns Iv 500 Ml (Sodium Chloride 0.9%) (02/08/17 22:23) (NAYAN HERNANDEZ MD) Medications Given in ED Current Medications Medications Dose Ordered Sig/Mal Route Start Time Stop Time Status Last Admin Dose Admin Iohexol 100 ml ONCE ONCE IV 02/08/17 22:15 02/08/17 22:16 DC 02/08/17 22:15 100 ML Sodium Chloride 100 ml ONCE ONCE IV 02/08/17 22:15 02/08/17 22:16 DC 02/08/17 22:15 80 ML Sodium Chloride 500 ml @ 0 mls/hr Q0M ONCE IV 02/08/17 22:23 02/08/17 22:24 DC 02/08/17 22:45 0 MLS/HR (NAYAN HERNANDEZ MD) Vital Signs/I&O Vital Sign - Last 12Hours 02/08/17 20:17 Temp 98.2 Pulse 62 Resp 18 B/P (MAP) 153/83 Pulse Ox 97 (NAYAN HERNANDEZ MD) Blood Pressure Mean: 106 Progress Note : Progress Note 2300: Assumed care from Thuy Rangel APRN with ultrasound pending. CT pelvis results pending. History she 0: Patient talking much better than described earlier. She knows where she is at and information regarding self. She is a little confused about the month but knows year. She also knows that she stays down the street. She is able to talk and communicate well. She was able to ambulate to the bathroom without difficulty using her walker. Monitor patient. 2349: Discussed all findings and concerns with the family. She has had return of intermittent episodes of confusion and appears to be waxing and waning.. I did discuss the case with Dr. Inman 1441. She says patient for admission, observation status. Patient family agree with plan. Patient is DO NOT RESUSCITATE. No aspirin do to patient allergies. Patient is on eliquis. (NAYAN HERNANDEZ MD) Diagnostic Imaging Diagonstic Imaging: Xray, CT Comments NAME: ANDREW [facility] REC#: [id number] PT STATUS: REG ER : 1930 PHYSICIAN: NAYAN HERNANDEZ MD ADMIT DATE: 02/08/17/ER Draft Date of Exam:02/08/17 CT HEAD WO-R/O STROKE EXAM: CT head w/o contrast, r/o STROKE. INDICATION: STROKE. COMPARISON: CT head without contrast from 01/15/2017. FINDINGS: No intracranial hemorrhage, mass effect, hydrocephalus or extra-axial fluid collections. No CT evidence of an acute infarction. Moderate to advanced generalized cerebral and cerebellar parenchymal volume loss. Intracranial vascular calcifications. Moderate leukoaraiosis. Osseous structures are intact. Opacification of the frontal sinuses is stable. The mastoids are clear. The orbits are unremarkable. IMPRESSION: No acute intracranial CT findings. Dictated on workstation # [id number] Dict: 02/08/172036 Trans: 02/08/172039 [facility] [id number] Interpreted by: LEON SAMAYOA MD Electronically signed by: (THUY RANGEL APRN) Plain Films/CT/US/NM/MRI: chest Comments No acute findings in the chest. Diagonstic Imaging: CT Plain Films/CT/US/NM/MRI: abdomen, pelvis Comments Multiple findings noted on statrad reading including presacral mass measuring approximately 7.2 cm x 5.3 cm x 4.2 cm in the area of the right adnexa. This is thicker than described previously. Also has right lower lobe lung nodule/ mass that is concerning for metastatic disease. There is intrahepatic biliary dilation with no obvious gallstones. See report for all findings. In comparison this is similar but increasing size of masses to both the pelvic mass and the right lower lobe of the lung. Reviewed: Reviewed [facility] Study Diagonstic Imaging: Ultrasound Plain Films/CT/US/NM/MRI: abdomen Comments Unremarkable sonographic appearance of the gallbladder. No gallstones, gallbladder wall thickening or pericholecystic fluid. Negative sonographic Fournier sign. Mild intrahepatic biliary dilation. Common bile duct is mildly prominent although within normal limits for age, measuring approximately 6.7 mm. Pancreas not visualized due to bowel gas. Reviewed: Reviewed [place] Study (NAYAN HERNANDEZ MD) Departure Communication Time/Spoke to Admitting Phy: 23:57 (NAYAN HERNANDEZ MD) Impression Impression: Primary Impression: Transient cerebral ischemia Qualified Codes: G45.9 - Transient cerebral ischemic attack, unspecified Disposition: ADMITTED INPATIENT Condition: Stable Decision to Admit Reason: Admit from ER (General) Decision to Admit/Date: Feb 08, 2017 Time/Decision to Admit Time: 23:57 (NAYAN HERNANDEZ MD) Departure-Patient Inst. Referrals: RONALD TAVERAS MD (PCP/Family) Primary Care Physician THUY RANGEL APRN Feb 08, 2017 21:15 NAYAN HERNANDEZ MD Feb 08, 2017 23:32
[2017-02-08 21:23] LABS: BASOPHILS % (AUTO) 0 % (0-10); EOSINOPHILS % (AUTO) 1 % (0-10); LYMPHOCYTES # (AUTO) 2.3 X 10^3 (1.0-4.0); LYMPHOCYTES % (AUTO) 33 % (12-44); MEAN CORPUSCULAR HEMOGLOBIN 26 PG (25-34); MEAN CORPUSCULAR HGB CONC 31 G/DL (32-36); MEAN CORPUSCULAR VOLUME 85 FL (80-99); MEAN PLATELET VOLUME 10.3 FL (7.4-10.4); MONOCYTES # (AUTO) 0.8 X 10^3 (0.0-1.0); MONOCYTES % (AUTO) 11 % (0-12); NEUTROPHILS # (AUTO) 3.9 X 10^3 (1.8-7.8); NEUTROPHILS % (AUTO) 56 % (42-75); PLATELET COUNT 194 10^3/uL (130-400); RED BLOOD COUNT 3.07 10^6/uL (4.35-5.85); RED CELL DISTRIBUTION WIDTH 16.3 % (10.0-14.5)
[2017-02-08 21:49] LABS: ALANINE AMINOTRANSFERASE 63 U/L (0-55); ANION GAP 9 MMOL/L (5-14); ASPARTATE AMINO TRANSFERASE 66 U/L (5-34); BILIRUBIN,TOTAL 0.4 MG/DL (0.1-1.0); BLOOD UREA NITROGEN 20 MG/DL (7-18); BUN/CREATININE RATIO 24; CALCIUM 8.9 MG/DL (8.5-10.1); CARBON DIOXIDE 23 MMOL/L (21-32); CHLORIDE 100 MMOL/L (98-107); CREATININE SERUM 0.82 MG/DL (0.60-1.30); GFR ESTIMATED > 60; GLUCOSE 131 MG/DL (70-105); POTASSIUM 3.9 MMOL/L (3.6-5.0); SODIUM 132 MMOL/L (135-145); TOTAL PROTEIN 7.4 GM/DL (6.4-8.2)
[2017-02-08] MEDS ORDERED: IOHEXOL 350 MG/ML 100 ML (OMNIPAQUE 350) VIAL IV ONE (22:15)
[2017-02-08] MEDS ORDERED: NS 100 ML (IVPB) BAG IV ONE (22:15)
[2017-02-08] MEDS ORDERED: NS IV 500 ML 500 ML IV ONE (22:23)
[2017-02-08 22:51] LABS: BILIRUBIN,URINE NEGATIVE (NEGATIVE); KETONES,URINE NEGATIVE (NEGATIVE); LEUKOCYTE ESTERASE ,URINE NEGATIVE (NEGATIVE); NITRITE,URINE NEGATIVE (NEGATIVE); PH,URINE 7 (5-9); PROTEIN,URINE NEGATIVE (NEGATIVE); UROBILINOGEN,URINE NORMAL (NORMAL)
[2017-02-08 22:59] LABS: WBC,URINE RARE /HPF
[2017-02-09] MEDS ORDERED: NS IV 1000 ML 1,000 ML ONE (03:07)
[2017-02-09 04:25] VITALS: BP 161/84
[2017-02-09] MEDS: NS IV 1000 ML 1,000 ML IV SCH (05:12)
[2017-02-09 05:17] LABS: BASOPHILS % (AUTO) 0 % (0-10); EOSINOPHILS # (AUTO) 0.1 10^3/uL (0.0-0.3); EOSINOPHILS % (AUTO) 1 % (0-10); LYMPHOCYTES # (AUTO) 2.4 X 10^3 (1.0-4.0); LYMPHOCYTES % (AUTO) 36 % (12-44); MEAN CORPUSCULAR HEMOGLOBIN 26 PG (25-34); MEAN CORPUSCULAR HGB CONC 31 G/DL (32-36); MEAN CORPUSCULAR VOLUME 84 FL (80-99); MEAN PLATELET VOLUME 10.2 FL (7.4-10.4); MONOCYTES # (AUTO) 0.9 X 10^3 (0.0-1.0); MONOCYTES % (AUTO) 14 % (0-12); NEUTROPHILS # (AUTO) 3.2 X 10^3 (1.8-7.8); NEUTROPHILS % (AUTO) 48 % (42-75); PLATELET COUNT 201 10^3/uL (130-400); RED BLOOD COUNT 3.17 10^6/uL (4.35-5.85); RED CELL DISTRIBUTION WIDTH 16.2 % (10.0-14.5); WHITE BLOOD COUNT 6.7 10^3/uL (4.3-11.0)
[2017-02-09 05:44] LABS: ALANINE AMINOTRANSFERASE 61 U/L (0-55); ANION GAP 7 MMOL/L (5-14); ASPARTATE AMINO TRANSFERASE 65 U/L (5-34); BILIRUBIN,TOTAL 0.4 MG/DL (0.1-1.0); BLOOD UREA NITROGEN 17 MG/DL (7-18); BUN/CREATININE RATIO 25; CALCIUM 8.9 MG/DL (8.5-10.1); CARBON DIOXIDE 24 MMOL/L (21-32); CHLORIDE 105 MMOL/L (98-107); CREATININE SERUM 0.69 MG/DL (0.60-1.30); GFR ESTIMATED > 60; GLUCOSE 89 MG/DL (70-105); POTASSIUM 3.7 MMOL/L (3.6-5.0); SODIUM 136 MMOL/L (135-145); TOTAL PROTEIN 7.5 GM/DL (6.4-8.2)
--- NOTE | 2017-02-09 07:17 | Diagnostic Imaging Report ---
PROCEDURE: US Gallbladder. TECHNIQUE: Multiple real-time grayscale images were obtained over the right upper quadrant in various projections. INDICATION: Elevated liver enzymes. Liver parenchyma is homogeneous with normal echotexture. The gallbladder is clear with no stones or wall thickening. The common duct is not dilated. Portal vein is patent with hepatopetal flow. Right kidney appeared normal. There is no ascites. IMPRESSION: Negative gallbladder sonogram. Dictated by: Dictated on workstation # [id number]
--- NOTE | 2017-02-09 07:25 | Diagnostic Imaging Report ---
PROCEDURE: CT abdomen and pelvis with contrast. TECHNIQUE: Multiple contiguous axial images were obtained through the abdomen and pelvis after administration of intravenous contrast. INDICATION: Abdominal pain. FINDINGS: There is a 22 x 28 mm lobulated mass at the right posterior lung base. There are several other subcentimeter nodules at the lung bases. Liver appears normal. The gallbladder is present. The pancreas appears normal. The spleen is not enlarged. Adrenals are normal. Right kidney appears normal. There is a 2.5 cm cyst in the midportion of left kidney and a 2 cm cyst in the upper pole of left kidney. There is no solid mass or calculus. There is calcific atherosclerosis of aorta. Urinary bladder appears normal. The uterus is atrophied. Partial gastrectomy cannot be excluded. The rectum appears normal. There is a mass in the pelvis positioned between the rectum and uterus, this measures 61 x 56 mm. Margins are irregular. There appears to be internal necrosis with air bubbles present. 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 I agree with preliminary interpretation. Dictated by: Dictated on workstation # [id number]
[2017-02-09 08:00] VITALS: BP 171/77
[2017-02-09] MEDS: APIXABAN 2.5 MG (ELIQUIS) TABLET PO SCH ×2 (08:08→20:28)
[2017-02-09] MEDS: amLODIPine 5 MG (NORVASC) TAB PO SCH (11:57)
[2017-02-09 12:00] VITALS: BP 176/83
--- NOTE | 2017-02-09 12:00 | Diagnostic Imaging Report ---
PROCEDURE: MR imaging of the brain without contrast. TECHNIQUE: Multiplanar, multisequence MR imaging of the brain was performed without contrast. INDICATION: Confusion. COMPARISON: Noncontrast CT head of 02/08/2017. FINDINGS: No space occupying mass. No restricted diffusion to indicate acute infarct. No gradient blooming hypointensities to suggest hemorrhage or AVM. No hydrocephalus or midline shift. Mild severity periventricular white matter T2/FLAIR hyperintensities are compatible with chronic microvascular ischemic disease. Generalized cerebral and cerebellar atrophy without lobar predominance. Major arterial flow voids are preserved. Sella and suprasellar regions are normal. No Chiari malformation. No sagging of the midbrain. Opacification of the frontal sinuses. Surgical changes of the bilateral maxillary sinus. Mastoid air cells are clear. Orbits are normal. No focal calvarial lesion. IMPRESSION: 1. No acute infarct. 2. Age-appropriate atrophy with mild chronic small-vessel ischemic disease. Dictated by: Dictated on workstation # [id number]
[2017-02-09] MEDS ORDERED: fentaNYL INJECTION 100 MCG/2 ML AMP IVP PRN (12:45)
[2017-02-09] MEDS ORDERED: ONDANSETRON 4 MG/2 ML (SDV) Z0FRAN IVP PRN (12:45)
[2017-02-09] MEDS ORDERED: POLYETHYLENE GLYCOL 17 GM (MIRALAX) PACK PO PRN (12:45)
[2017-02-09] MEDS ORDERED: HYDROcodone/APAP 5 MG/325 MG (LORTAB) TAB PO PRN (12:45)
[2017-02-09] MEDS ORDERED: IOHEXOL 350 MG/ML 100 ML (OMNIPAQUE 350) VIAL IV ONE (13:00)
[2017-02-09] MEDS ORDERED: NS 100 ML (IVPB) BAG IV ONE (13:00)
--- NOTE | 2017-02-09 13:15 | History & Physical-Hospitalist ---
HPI History of Present Illness: HPI/Chief Complaint CC: Unable to speak with elevated liver enzymes and large pelvic mass HPI: This is an 86-year-old white female resides at [facility] living facility of Dr. Carlos's with a history of multiple colon resections due to large polyps that were dysplastic in nature and bilateral radical mastectomies due to breast cancer the presents to the emergency room with unable to speak. She has had this situation before and it had resolved spontaneously but she was admitted to obtain the MRI of the brain to evaluate for stroke and further workup for elevated liver enzymes and a large pelvic mass that looks neoplastic and etiology. I consulted Dr. Rivers who graciously evaluated the patient and he knows her from 2013 when he performed a colonoscopy. He updated the patient and family regarding the possibility of medical conditions that she has an overall poor prognosis considering advanced age of [age] years old and multiple comorbidities and overall debility and likelihood that this is a neurologic deficit from a neoplastic process. Source: patient Exam Limitations: other (dementia noted) Date Seen 02/09/17 Time Seen by Provider: 11:00 Attending Physician Doris Inman DO PCP Paras Carlos MD Referring Physician Date of Admission Feb 08, 2017 at 23:55 Home Medications & Allergies Home Medications Reviewed patient Home Medication Reconciliation Form Allergies Allergies Coded Allergies aspirin (Verified Allergy, Unknown, 05/01/15) niacin (Verified Allergy, Unknown, 05/01/15) clopidogrel (Verified Adverse Reaction, Unknown, INTERNAL BLEEDING , 05/01/15) Uncoded Allergies BERLANTA ( Allergy, Severe, ASTHMA, 12/13/16) Past Lrpfyhj-Muhawd-Qaqtxo Hx Patient Social History Marrital Status: Employed/Student: retired Alcohol Use: Denies Use Recreational Drug Use: No Smoking Status: Never a Smoker Physical Abuse Screen: No Sexual Abuse: No Recent Foreign Travel: No Contact w/other who traveled: No Recent Hopitalizations: No Recent Infectious Disease Expo: No Immunizations Up To Date Tetanus Booster (TDap): Unknown Date of Pneumonia Vaccine: Mar 20, 2012 Date of Influenza Vaccine: May 27, 2012 Seasonal Allergies Seasonal Allergies: No Surgeries HX Surgeries: Yes (COLONOSCOPY 02/24, COLECTOMY 02/24, NASAL POLYPS REMOVED, LT MASTECTOMY) Respiratory Hx Respiratory Disorders: No Cardiovascular Hx Cardiovascular Disorders: Yes Cardiac Disorders: Atrial Fibrillation, High Cholesterol, Hypertension Neurological Hx Neurological Disorders: Yes (CONFUSION X4 (UTI VS TIA)) Neurological Disorders: Dementia, TIA Reproductive System Hx Reproductive Disorders: No Sexually Transmitted Disease: No Genitourinary Hx Genitourinary Disorders: Yes (UTI) Genitourinary Disorders: UTI-Chronic Gastrointestinal Hx Gastrointestinal Disorders: Yes (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) Gastrointestinal Disorders: Hemorrhoids, Polyps Musculoskeletal Hx Musculoskeletal Disorders: Yes Musculoskeletal Disorders: Arthritis Endocrine Hx Endocrine Disorders: Yes Endocrine Disorders: Hypothyroidsim HEENT HX ENT Disorders: Yes (LT EYE LAZY, RT EYE CATARACT REMOVED ) Cancer Hx Cancer: No Cancer: Breast Psychosocial Hx Psychiatric Problems: No Integumentary HX Skin/Integumentary Disorder: No Blood Transfusions Hx Blood Disorders: Yes ("SLIGHT ANEMIA" ) Adverse Reaction to a Blood Tr: No Family Medical History Significant Family History: No Pertinent Family Hx Family Hx: Diabetes mellitus G8 SISTER G8 SISTER Review of Systems Constitutional: see HPI, weakness EENTM: no symptoms reported Respiratory: no symptoms reported Cardiovascular: no symptoms reported Gastrointestinal: no symptoms reported Genitourinary: no symptoms reported Musculoskeletal: no symptoms reported Skin: no symptoms reported Psychiatric/Neurological: Other (unable to speak) Physical Exam Physical Exam Vital Signs Vital Sign - Last 12Hours 02/08/17 02/09/17 20:17 04:25 Temp 98.2 Pulse 62 Resp 18 B/P (MAP) 153/83 Pulse Ox 97 O2 Delivery Room Air Capillary Refill : Less Than 3 Seconds General Appearance: No Apparent Distress, WD/WN, Chronically ill, Thin Eyes: Bilateral Eye Normal Inspection, Bilateral Eye PERRL HEENT: PERRL/EOMI, Normal ENT Inspection, Pharynx Normal Neck: Full Range of Motion, Normal Inspection, Non Tender, Supple, Carotid Bruit Respiratory: Chest Non Tender, Lungs Clear, Normal Breath Sounds, No Accessory Muscle Use, No Respiratory Distress Cardiovascular: Regular Rate, Rhythm, No Edema, No Gallop, No JVD, No Murmur, Normal Peripheral Pulses Gastrointestinal: Normal Bowel Sounds, No Organomegaly, No Pulsatile Mass, Non Tender, Soft Back: Normal Inspection, No CVA Tenderness, No Vertebral Tenderness Extremity: Normal Capillary Refill, Normal Inspection, Normal Range of Motion, Non Tender, No Calf Tenderness, No Pedal Edema Neurologic/Psychiatric: Alert, Oriented x3 (poor recall), No Motor/Sensory Deficits, Normal Mood/Affect Skin: Normal Color, Warm/Dry Lymphatic: No Adenopathy Results Results/Procedures Lab Laboratory Tests 02/08/17 21:10 02/09/17 04:48 Assessment/Plan Admission Diagnosis Assessment: Acute neurological deficit that MRI negative for stroke but likely neoplastic process as etiology 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 with history of multiple colon resections due to large polyps that were dysplastic and history of breast cancer bilateral mastectomies Hypothyroidism Hypertension Chronic anemia of illness Overall debility uses walker to walk AF Assessment and Plan Plan: Check CT scan with IV contrast and rectal contrast to evaluate the source of the large pelvic mass but likely neoplastic process May need colonoscopy to fully evaluate the mass or may need gynecology evaluation in case this is ovarian in source Reconcile all home meds when confirmed Walker with ambulation Monitor labs especially hgb Poor prognosis Fall risk Clinical Quality Measures DVT/VTE Risk/Contraindication: Risk Factor Score Per Nursin RFS Level Per Nursing on Admit: 2=Moderate DORIS INMAN DO Feb 09, 2017 13:15
[2017-02-09] MEDS ORDERED: APIX2.5T PO (13:17)
[2017-02-09] MEDS ORDERED: ACET325T38 PO (13:17)
[2017-02-09] MEDS ORDERED: LOPE-145 PO (13:17)
[2017-02-09] MEDS ORDERED: MELA1TAB27 PO (13:24)
[2017-02-09] MEDS ORDERED: SERT50TA2 PO (13:24)
--- NOTE | 2017-02-09 14:17 | Diagnostic Imaging Report ---
PROCEDURE: CT abdomen and pelvis with and without contrast. TECHNIQUE: Precontrast acquisitions were acquired through the abdomen and pelvis. Multiple contiguous axial images were obtained through the abdomen and pelvis after the administration of intravenous contrast. INDICATION: Colon mass. Study was done with and without IV and rectal contrast. The colon fills. There is retained fecal material. There are no masses or annular constricting lesions in the colon. Patient appears to have had a partial right hemicolectomy with a direct end/end anastomosis between the ascending colon and ileum. The distal ileum extends down to the pelvic mass, but there is no reflux of contrast into that region. Small bowel is not dilated. Lobulated masses in the right lower lung and smaller nodules in the lungs are noted. Liver remains unremarkable. Spleen is not enlarged. There are cysts in the eft kidney. Right kidney is normal. Adrenals are normal. IMPRESSION: Contrast refluxes to the cecum but not far enough into the distal small bowel to evaluate the masslike lesion in the pelvis. Differential considerations would include neoplasm versus encased loops of small bowel within an internal hernia. Dictated by: Dictated on workstation # [id number]
[2017-02-09 16:02] VITALS: BP 157/80
[2017-02-09 19:50] VITALS: BP 157/80
[2017-02-09 23:45] VITALS: BP 139/70
[2017-02-10] MEDS: NS IV 1000 ML 1,000 ML IV SCH (01:55)
--- NOTE | 2017-02-10 03:08 | CONSULTATION REPORT ---
DATE OF CONSULTATION: 02/08/2017 ATTENDING PRIMARY CARE PHYSICIAN: Dr. Carlos. ADMITTING PHYSICIAN: Dr. Inman Ms. Brooklynn Fernandez is an 86-year-old female known to us. She was initially referred over to us for a follow-up colonoscopy in 2013. 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 She also has a history of ductal carcinoma in situ of the left breast and underwent an initial lumpectomy and sentinel node; however, it sounds as though she underwent a full modified radical mastectomy in 2005. She has also had issues with severe sinus polyps and multiple polypectomies. When we had seen her in 2013 she had had some change in bowel habits including incontinence. She also has a history of suspected TIAs and she and her family report that she usually has events once every few months that will last for several hours. On 01/21/2014 she underwent a colonoscopy with findings of chronic stage II to III external and internal hemorrhoids, mild descending colonic diverticulosis and a normal ileocolonic anastomosis and no polyps or tumors identified. She was brought to [facility] emergency department last night for another similar TIA episode which lasted for longer with confusion. She did undergo MRI and CT scan of the brain, which did not show any strokes. Her family states that she has had crampy lower abdominal pain for the past 3 months. She reports that her bowel movements have gone from loose incontinent to more constipation. She reports that she only has a bowel movement every once every 3 days. She also had a Hemoccult test done which was positive. She does not report any overt red blood per rectum nor any dark tarry stools. The family also reports that she has lost approximately 15 pounds in the past several months. A CT scan was performed of the abdomen and pelvis, which did show a large pelvic mass; however, this is hard to differentiate if this is part of the gastrointestinal tract versus MEDICAL SOCIOLOGIST versus purely retroperitoneal mass. PAST MEDICAL HISTORY: 1. Left breast DCIS. 2. Hypertension. 3. Hyperlipidemia. 4. Hypothyroid. 5. Osteopenia. 6. Recurrent nasal polyps. 7. Colon polyps with dysplastic changes. 8. History of multiple TIAs. 9. Atrial fibrillation. PAST SURGERIES: 1. Low anterior resection. 2. Right hemicolectomy. 3. Left modified radical mastectomy. 4. Right cataract removal. ALLERGIES: Aspirin. MEDICATIONS: 1. Amlodipine 2.5 mg daily. 2. Atorvastatin 20 mg daily. 3. Vitamin B12 daily. 4. Nitrofurantoin 100 mg b.i.d. 5. Paradoxine 100 mg daily. 6. Eliquis daily. SOCIAL HISTORY: Negative smoke or alcohol. FAMILY HISTORY: Noncontributory. VITAL SIGNS: Temperature 97.7, blood pressure 171/77, pulse 63, respirations 20, pulse oximetry 97% on room air. REVIEW OF SYSTEMS: This is a well nourished elderly female who is awake and alert and answers the majority of questions appropriately. She is not experiencing any shortness of breath or difficulty breathing. No cough or sputum production. No chest pain, palpitations, or diaphoresis. She came in with confusion starting yesterday. No headache or visual changes. No nausea or vomiting, with decreased appetite in the past year. History of stool incontinence; however, has had constipation in the past several months. No red blood per rectum. No dark tarry stools. No fever, chills with approximately 15 pounds weight loss in the past several months. All other review of systems negative. PHYSICAL EXAMINATION: CHEST: Good breath sounds bilaterally. Clear. HEART: Regular. No murmurs. EXTREMITIES: No lower extremity edema, negative Yobany sign. HEENT: No scleral icterus, no cervical lymphadenopathy. ABDOMEN: Soft, slightly distended. There is mild discomfort in the lower abdominal quadrants upon deep palpation. There are no palpable masses. SKIN: Warm and dry. LABS: WBC 6.7, hemoglobin 8.1, hematocrit 27, platelets 201. Total bilirubin 0.4, AST 65, ALT 61, alkaline phosphatase 376, BUN 17, creatinine 0.69. ASSESSMENT AND PLAN: 86-year-old female with pelvic mass. This mass is large in size and approximately 7 cm in greatest dimension. She does have a history of 2 separate a large colon polyps with dysplastic changes requiring 2 separate colon resections. She also has a history of what sounds to be an aggressive form of ductal carcinoma in situ versus an invasive form of breast cancer requiring modified radical mastectomy. Due to her history of cancers, it appears that she most likely has a high risk of recurrent cancer. We are unsure of what the etiology of the pelvic mass is; however, may indicate a MEDICAL SOCIOLOGIST malignancy versus a gastrointestinal malignancy versus a purely retroperitoneal mass. At this time she is not obstructed and does not show any signs of bleeding or perforation. We will proceed with a CT scan of the abdomen and pelvis with IV and oral contrast, as well as rectal contrast. If this does not yield much information, we will then proceed with colonoscopy. Job ID: [id number] Dictated Date: 02/09/2017 13:00:13 Etiquette Teacher Date: 02/10/2017 02:40:09/foreign
[2017-02-10 04:05] VITALS: BP 140/69
[2017-02-10 05:05] VITALS: BP 157/70
[2017-02-10 05:19] LABS: RED BLOOD COUNT 3.32 10^6/uL (4.35-5.85); RED CELL DISTRIBUTION WIDTH 16.2 % (10.0-14.5); WHITE BLOOD COUNT 9.8 10^3/uL (4.3-11.0)
[2017-02-10 06:13] LABS: ALANINE AMINOTRANSFERASE 59 U/L (0-55); ALBUMIN 3.1 GM/DL (3.2-4.5); ANION GAP 13 MMOL/L (5-14); ASPARTATE AMINO TRANSFERASE 58 U/L (5-34); BILIRUBIN,TOTAL 0.6 MG/DL (0.1-1.0); BLOOD UREA NITROGEN 13 MG/DL (7-18); BUN/CREATININE RATIO 19; CALCIUM 8.8 MG/DL (8.5-10.1); CARBON DIOXIDE 18 MMOL/L (21-32); CHLORIDE 104 MMOL/L (98-107); CREATININE SERUM 0.67 MG/DL (0.60-1.30); GFR ESTIMATED > 60; GLUCOSE 91 MG/DL (70-105); POTASSIUM 3.6 MMOL/L (3.6-5.0); SODIUM 135 MMOL/L (135-145); TOTAL PROTEIN 7.6 GM/DL (6.4-8.2)
[2017-02-10 08:00] VITALS: BP 151/75
[2017-02-10] MEDS: APIXABAN 2.5 MG (ELIQUIS) TABLET PO SCH (09:37)
[2017-02-10] MEDS: amLODIPine 5 MG (NORVASC) TAB PO SCH (09:37)
[2017-02-10 12:00] VITALS: BP 162/83
--- NOTE | 2017-02-10 12:00 | Progress Note-Hospitalist ---
Progress Note HPI/CC on Admission CC: Unable to speak with elevated liver enzymes and large pelvic mass HPI: This is an 86-year-old white female resides at [facility] assisted living facility of Dr. Carlos'car with a history of multiple colon resections due to large polyps that were dysplastic in nature and bilateral radical mastectomies due to breast cancer the presents to the emergency room with unable to speak. She has had this situation before and it had resolved spontaneously but she was admitted to obtain the MRI of the brain to evaluate for stroke and further workup for elevated liver enzymes and a large pelvic mass that looks neoplastic and etiology. I consulted Dr. Rivers who graciously evaluated the patient and he knows her from 2013 when he performed a colonoscopy. He updated the patient and family regarding the possibility of medical conditions that she has an overall poor prognosis considering advanced age of [age] years old and multiple comorbidities and overall debility and likelihood that this is a neurologic deficit from a neoplastic process. Progress Notes/Assess & Plan Date Seen 02/10/17 Time Seen by Provider: 10:00 Admission Dx/Process Assessment: Acute neurological deficit that MRI negative for stroke but likely neoplastic process as etiology 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 with history of multiple colon resections due to large polyps that were dysplastic and history of breast cancer bilateral mastectomies Hypothyroidism Hypertension Chronic anemia of illness Overall debility uses walker to walk AF Diagonsis/Assessment & Plan Patient doing much better but had urinated on the floor so we'll disconnect IV fluids to allow her to ambulate with assistance with walker Updated her daughter since CT scan with rectal contrast did not show anything significant as far as etiology of the pelvic mass that is involved the liver with elevated liver enzymes and pulmonary nodules Reconcile all home meds Held anticoagulation considering procedure will be planned by Dr. Rivers Dementia is significant and becoming more and more apparent every day that I see her Likely will need [place] [facility] at discharge instead of assisted living no fever, vital signs stable, pleasant, improved, daughter at bedside Irregular irregular rhythm, clear to auscultation bilaterally No edema Laboratory Tests 02/10/17 04:41 Assessment: Acute neurological deficit that MRI negative for stroke but likely neoplastic process as etiology 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 with history of multiple colon resections due to large polyps that were dysplastic and history of breast cancer bilateral mastectomies Hypothyroidism Hypertension Chronic anemia of illness Overall debility uses walker to walk AF Plan: Check CT scan with IV contrast and rectal contrast to failed to confirm the source of the large pelvic mass but likely neoplastic process Likely will need colonoscopy to fully evaluate the mass or may need gynecology evaluation in case this is ovarian in source Reconciled all home meds Walker with ambulation after HLIVF Monitor labs especially hgb Poor prognosis Fall risk CURT BROWN DO Feb 10, 2017 12:00
[2017-02-10] MEDS: ACETAMINOPHEN 500 MG TAB (TYLENOL) PO SCH ×2 (12:05→18:40)
--- NOTE | 2017-02-10 12:10 | Progress Note (SOAP) ---
Subjective Date Seen by Provider: Feb 10, 2017 Time Seen by Provider: 11:00 Subjective/Events-last exam doing well. no new complaints. did have BM after rectal contrast CT which was dark/maroon. Objective Exam Vital Signs Date Time Temp Pulse Resp B/P (MAP) Pulse Ox O2 Delivery O2 Flow Rate FiO2 02/10/17 08:00 98.6 62 16 151/75 9 Room Air 02/10/17 05:05 98.9 67 20 157/70 96 Room Air 02/10/17 04:05 98.1 60 20 140/69 97 Room Air 02/09/17 23:45 99.6 71 20 139/70 95 Room Air 02/09/17 21:00 Room Air 02/09/17 19:50 98.4 57 19 157/80 96 Room Air 02/09/17 16:02 98.4 57 19 157/80 96 Room Air 02/09/17 12:00 98.0 62 20 176/83 97 Room Air I & O 02/10/17 07:00 Intake Total 2770 ml Output Total 1300 ml Balance 1470 ml Capillary Refill : Less Than 3 Seconds General Appearance: No Apparent Distress HEENT: PERRL/EOMI Neck: Full Range of Motion Respiratory: Chest Non Tender, Lungs Clear Cardiovascular: Regular Rate, Rhythm Gastrointestinal: normal bowel sounds, non tender, soft Extremity: Normal Capillary Refill Neurologic/Psychiatric: Alert, Oriented x3 Skin: Normal Color Lymphatic: No Adenopathy Results Lab Laboratory Tests 02/10/17 04:41: White Blood Count 9.8, Red Blood Count 3.32L, Hemoglobin 8.5L, Hematocrit 28L, Mean Corpuscular Volume 83, Mean Corpuscular Hemoglobin 26, Mean Corpuscular Hemoglobin Concent 31L, Red Cell Distribution Width 16.2H, Platelet Count 217, Mean Platelet Volume 10.0, Sodium Level 135, Potassium Level 3.6, Chloride Level 104, Carbon Dioxide Level 18L, Anion Gap 13, Blood Urea Nitrogen 13, Creatinine 0.67, Estimat Glomerular Filtration Rate > 60, BUN/Creatinine Ratio 19, Glucose Level 91, Calcium Level 8.8, Total Bilirubin 0.6, Aspartate Amino Transf (AST/SGOT) 58H, Alanine Aminotransferase (ALT/SGPT) 59H, Alkaline Phosphatase 391H, Total Protein 7.6, Albumin 3.1L Assessment/Plan Assessment/Plan Assess & Plan/Chief Complaint pelvic mass. after reviewing rectal contrast CT, believe this is of [id number] etiology. last colonoscopy 02/01 which was normal. will get tumor markers. consult IR for percutaneous bx. Clinical Quality Measures DVT/VTE Risk/Contraindication: Risk Factor Score Per Nursin RFS Level Per Nursing on Admit: 2=Moderate LIA العراقي MD Feb 10, 2017 12:10
[2017-02-10] MEDS: LOPERAMIDE 2 MG (IMODIUM) CAP PO SCH ×2 (12:23→23:54)
[2017-02-10 16:00] VITALS: BP 164/72
[2017-02-10 20:00] VITALS: BP 162/76
[2017-02-11] MEDS: ACETAMINOPHEN 500 MG TAB (TYLENOL) PO SCH ×2 (00:13→06:28)
[2017-02-11 00:40] VITALS: BP 106/57
[2017-02-11 04:20] VITALS: BP 148/67
[2017-02-11 05:55] LABS: BASOPHILS % (AUTO) 0 % (0-10); EOSINOPHILS # (AUTO) 0.1 10^3/uL (0.0-0.3); EOSINOPHILS % (AUTO) 2 % (0-10); LYMPHOCYTES # (AUTO) 2.3 X 10^3 (1.0-4.0); LYMPHOCYTES % (AUTO) 32 % (12-44); MEAN CORPUSCULAR HEMOGLOBIN 26 PG (25-34); MEAN CORPUSCULAR HGB CONC 31 G/DL (32-36); MEAN CORPUSCULAR VOLUME 84 FL (80-99); MEAN PLATELET VOLUME 9.7 FL (7.4-10.4); MONOCYTES # (AUTO) 0.9 X 10^3 (0.0-1.0); MONOCYTES % (AUTO) 12 % (0-12); NEUTROPHILS % (AUTO) 55 % (42-75); PLATELET COUNT 216 10^3/uL (130-400); RED BLOOD COUNT 3.16 10^6/uL (4.35-5.85); RED CELL DISTRIBUTION WIDTH 16.2 % (10.0-14.5); WHITE BLOOD COUNT 7.2 10^3/uL (4.3-11.0)
[2017-02-11 06:24] LABS: ALANINE AMINOTRANSFERASE 48 U/L (0-55); ALBUMIN 2.8 GM/DL (3.2-4.5); ANION GAP 7 MMOL/L (5-14); ASPARTATE AMINO TRANSFERASE 47 U/L (5-34); BILIRUBIN,TOTAL 0.5 MG/DL (0.1-1.0); BLOOD UREA NITROGEN 16 MG/DL (7-18); BUN/CREATININE RATIO 24; CALCIUM 8.5 MG/DL (8.5-10.1); CARBON DIOXIDE 23 MMOL/L (21-32); CHLORIDE 106 MMOL/L (98-107); CREATININE SERUM 0.68 MG/DL (0.60-1.30); GFR ESTIMATED > 60; GLUCOSE 92 MG/DL (70-105); POTASSIUM 3.8 MMOL/L (3.6-5.0); SODIUM 136 MMOL/L (135-145); TOTAL PROTEIN 6.9 GM/DL (6.4-8.2)
[2017-02-11 08:00] VITALS: BP 148/68
[2017-02-11] MEDS ORDERED: ACET-2267 PO (09:09)
[2017-02-11] MEDS ORDERED: FISH1CAP15 PO (09:09)
[2017-02-11] MEDS ORDERED: MULT-166 PO (09:09)
[2017-02-11] MEDS ORDERED: CYAN500T2 PO (09:09)
[2017-02-11] MEDS: ATORVASTATIN 20 MG (LIPITOR) TABLET PO SCH (09:17)
[2017-02-11] MEDS: amLODIPine 5 MG (NORVASC) TAB PO SCH (09:18)
[2017-02-11] MEDS: SERTRALINE 50 MG (ZOLOFT) TABLET PO SCH (09:18)
[2017-02-11] MEDS: LEVOTHYROXINE 75 MCG (LEVOTHROID) TABLET PO SCH (09:18)
[2017-02-11] MEDS ORDERED: ACETAMINOPHEN 500 MG TAB (TYLENOL) PO PRN (09:30)
[2017-02-11] MEDS ORDERED: LOPERAMIDE 2 MG (IMODIUM) CAP PO PRN (09:30)
[2017-02-11 12:00] VITALS: BP 115/55
--- NOTE | 2017-02-11 14:52 | Progress Note-Hospitalist ---
Standard Progress Note Progress Notes/Assess & Plan Date Seen 02/11/17 Time Seen by Provider: 14:47 Diagnosis Assessment: Acute neurological deficit that MRI negative for stroke but likely neoplastic process as etiology 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 with history of multiple colon resections due to large polyps that were dysplastic and history of breast cancer bilateral mastectomies Hypothyroidism Hypertension Chronic anemia of illness Overall debility uses walker to walk AF Assess & Plan/Chief Complaint The patient is an 86-year-old white female known to me from previous contacts. She presented to the emergency room with a change in mental status that was considered to be a possible stroke. Workup showed this not to be the case although she had evidence of pre-existing disease. Incidental workup prompted by abdominal pain showed a large mass in the pelvis. Dr. Rivers had put in a request to interventional radiology for needle biopsy. Discussion with Dr. Easley reveals this to be not safely reachable by needle biopsy and was treated. A long discussion followed with the patient's daughters relative to possibilities to be discussed with Dr. Rivers. Physical exam: The patient is quite hard of hearing and frail appearing. Lungs are clear to auscultation. CV is regular. Abdomen is soft. Impression: large pelvic mass Plan: Daughters to discuss possibilities with Dr. Rivers today. Labs Laboratory Tests 02/10/17 04:41 02/11/17 05:47 DAFNE SOTO MD Feb 11, 2017 14:52
[2017-02-11 16:17] VITALS: BP 130/70
--- NOTE | 2017-02-11 19:23 | Progress Note (SOAP) ---
Subjective Date Seen by Provider: Feb 11, 2017 Time Seen by Provider: 19:00 Subjective/Events-last exam doing ok. having dark BM's. no signs of obstruction. pelvic mass not attainable by percutaneous bx result. Objective Exam Vital Signs Date Time Temp Pulse Resp B/P (MAP) Pulse Ox O2 Delivery O2 Flow Rate FiO2 02/11/17 16:17 99.0 62 20 130/70 96 Room Air 02/11/17 12:00 99.4 60 20 115/55 96 Room Air 02/11/17 08:00 Room Air 02/11/17 08:00 98.9 57 20 148/68 96 Room Air 02/11/17 04:20 97.4 68 18 148/67 96 Room Air 02/11/17 00:40 98.6 61 106/57 94 02/10/17 20:30 Room Air 02/10/17 20:00 98.9 65 18 162/76 96 Room Air I & O 02/11/17 07:00 Intake Total 1850 ml Output Total 1100 ml Balance 750 ml Capillary Refill : Less Than 3 Seconds General Appearance: No Apparent Distress HEENT: PERRL/EOMI Neck: Full Range of Motion, Normal Inspection Respiratory: Chest Non Tender, Lungs Clear, Normal Breath Sounds Cardiovascular: Regular Rate, Rhythm Gastrointestinal: normal bowel sounds, non tender, soft Extremity: Normal Capillary Refill Neurologic/Psychiatric: Alert, Oriented x3 Skin: Normal Color Lymphatic: No Adenopathy Results Lab Laboratory Tests 02/11/17 05:47: White Blood Count 7.2, Red Blood Count 3.16L, Hemoglobin 8.1L, Hematocrit 27L, Mean Corpuscular Volume 84, Mean Corpuscular Hemoglobin 26, Mean Corpuscular Hemoglobin Concent 31L, Red Cell Distribution Width 16.2H, Platelet Count 216, Mean Platelet Volume 9.7, Neutrophils (%) (Auto) 55, Lymphocytes (%) (Auto) 32, Monocytes (%) (Auto) 12, Eosinophils (%) (Auto) 2, Basophils (%) (Auto) 0, Neutrophils # (Auto) 4.0, Lymphocytes # (Auto) 2.3, Monocytes # (Auto) 0.9, Eosinophils # (Auto) 0.1, Basophils # (Auto) 0.0, Sodium Level 136, Potassium Level 3.8, Chloride Level 106, Carbon Dioxide Level 23, Anion Gap 7, Blood Urea Nitrogen 16, Creatinine 0.68, Estimat Glomerular Filtration Rate > 60, BUN/ Creatinine Ratio 24, Glucose Level 92, Calcium Level 8.5, Total Bilirubin 0.5, Aspartate Amino Transf (AST/SGOT) 47H, Alanine Aminotransferase (ALT/SGPT) 48, Alkaline Phosphatase 323H, Total Protein 6.9, Albumin 2.8L Assessment/Plan Assessment/Plan Assess & Plan/Chief Complaint pelvic mass. after reviewing rectal contrast CT, believe this is of [id number] etiology. last colonoscopy 02/01 which was normal. will get tumor markers. IR unable to to percutaneous bx. patient does not want surgery at this time. will consult oncology for further management strategies. Clinical Quality Measures DVT/VTE Risk/Contraindication: Risk Factor Score Per Nursin RFS Level Per Nursing on Admit: 2=Moderate LIA العراقي MD Feb 11, 2017 7:23 pm
[2017-02-11 20:00] VITALS: BP 134/76
[2017-02-12] VITALS (8 sets, daily range): BP systolic 116–160; BP diastolic 58–74
[2017-02-12] MEDS: SERTRALINE 50 MG (ZOLOFT) TABLET PO SCH (09:08)
[2017-02-12] MEDS: LEVOTHYROXINE 75 MCG (LEVOTHROID) TABLET PO SCH (09:08)
[2017-02-12] MEDS: ATORVASTATIN 20 MG (LIPITOR) TABLET PO SCH (09:08)
[2017-02-12] MEDS: amLODIPine 5 MG (NORVASC) TAB PO SCH (09:08)
--- NOTE | 2017-02-12 13:38 | Progress Note (SOAP) ---
Subjective Date Seen by Provider: Feb 12, 2017 Time Seen by Provider: 13:00 Subjective/Events-last exam doing ok. no new complaints. still having dark stools. anemic most likely secondary to GI loss and tumor bulk. Objective Exam Vital Signs Date Time Temp Pulse Resp B/P (MAP) Pulse Ox O2 Delivery O2 Flow Rate FiO2 02/12/17 13:32 98.0 58 20 116/58 96 Room Air 02/12/17 10:42 98.7 62 20 160/74 97 Room Air 02/12/17 09:00 Room Air 02/12/17 08:00 98.7 62 20 160/74 97 Room Air 02/12/17 04:00 98.5 56 18 148/67 96 Room Air 02/12/17 00:30 98.7 60 20 141/69 98 Room Air 02/11/17 21:00 Room Air 02/11/17 20:00 99.2 62 20 134/76 96 Room Air 02/11/17 16:17 99.0 62 20 130/70 96 Room Air I & O 02/12/17 07:00 Intake Total 1460 ml Output Total 1900 ml Balance -440 ml Capillary Refill : Less Than 3 Seconds General Appearance: No Apparent Distress HEENT: PERRL/EOMI Neck: Full Range of Motion Respiratory: Chest Non Tender, Lungs Clear, Normal Breath Sounds Cardiovascular: Regular Rate, Rhythm Gastrointestinal: normal bowel sounds, soft Extremity: Normal Capillary Refill Neurologic/Psychiatric: Alert, Oriented x3 Skin: Normal Color Lymphatic: No Adenopathy Assessment/Plan Assessment/Plan Assess & Plan/Chief Complaint pelvic mass. after reviewing rectal contrast CT, believe this is of [id number] etiology. last colonoscopy 02/01 which was normal. will get tumor markers. IR unable to to percutaneous bx. patient does not want surgery at this time. will consult oncology for further management strategies. 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
--- NOTE | 2017-02-12 13:41 | Progress Note-Hospitalist ---
Standard Progress Note Progress Notes/Assess & Plan Date Seen 02/12/17 Time Seen by Provider: 13:28 Diagnosis Assessment: Acute neurological deficit that MRI negative for stroke but likely neoplastic process as etiology 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 with history of multiple colon resections due to large polyps that were dysplastic and history of breast cancer bilateral mastectomies Hypothyroidism Hypertension Chronic anemia of illness Overall debility uses walker to walk AF Assess & Plan/Chief Complaint After yesterday's discussions the patient has decided that she wants no attempt at surgery. Dr. Rivers wishes Dr. Ferreira to speak to the patient and her daughters about the malignancy issues. We also discussed hospice and they are informed that they do not have to have a concrete diagnosis TO inVOKE this status. After Dr. Michel sees her this afternoon she will return to [facility]. Physical exam: She is alert and pleasant. Lungs are clear to auscultation. CV is regular without murmur. 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 2.nodules reported in the lungs. Plan: Discharge Labs Laboratory Tests 02/11/17 05:47 DAFNE SOTO MD Feb 12, 2017 13:41
--- NOTE | 2017-02-12 13:44 | Discharge Instructions ---
Discharge Instructions Patient Instructions Patient Instructions: Resume medications as on the discharge list. You would qualify for hospice status and this can be explored even as an outpatient. Activity & Diet Discharge Diet: No Restrictions DAFNE SOTO MD Feb 12, 2017 13:44
--- NOTE | 2017-02-13 09:56 | CONSULTATION REPORT ---
DATE OF CONSULTATION: 02/12/2017 REFERRING PHYSICIAN: Regan Rivers M.D. PRIMARY PHYSICIAN: Paras Carlos M.D. The patient is admitted to Room 410. 86-year-old female admitted with altered mental status which lasted approximately 17 hours this time and has improved back to baseline now. During the emergency room evaluation the patient also complained of abdominal discomfort and had positive fecal occult blood test. She will was noted to have a pelvic mass in November [address] scan of the abdomen and pelvis was also done, which showed a large mass in the pelvis which has grown compared to before. It was a unclear what this mass was or where it was starting from and a medical oncology consultation was requested to discuss about further options. PAST MEDICAL HISTORY: 1. Significant for worsening dementia and intermittent TIA like symptoms with no definite evidence of a CVA for a long time. 2. 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 3. 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 4. History of hypertension, hyperlipidemia and hypothyroidism. 5. History of chronic atrial fibrillation and on anticoagulation. PRIOR SURGERIES INCLUDE: 1. Low anterior resection in the distant past. 2. Left mastectomy in the past. 3. Right hemicolectomy in 2011. 4. Right cataract surgery. SOCIAL HISTORY: The patient is and she is living at the [facility] since the last 1-1/2 years. She has 2 daughters one of whom lives in [place] and one in [place]. No significant history of tobacco, alcohol or other recreational drug use. FAMILY HISTORY: Family history, as far as both daughters can remember is unremarkable with only an uncle with bone cancer. No other significant malignancies in the family that they know of. PHYSICAL EXAMINATION: Physical examination today showed an elderly female, awake, and answering questions to some extent although unable to give any details. The patient depended on her daughters to answer questions. She herself denied any problem today. No abdominal pain. No bleeding or spotting. No history of partha hematochezia or melena. VITAL SIGNS: Temperature was 98.9, pulse rate of 60, respiratory rate 18, blood pressure 144/66 and pulse oximetry was 96% on room air. HEENT: Normocephalic, extraocular muscles intact. Conjunctivae pale, oral mucosa moist. NECK: Supple with no JVD. No cervical, supraclavicular, or axillary lymphadenopathy palpable. EXAMINATION OF THE CHEST: Showed left mastectomy. No chest wall lesions noted. LUNGS: Fairly clear without wheezes or rales. CARDIOVASCULAR EXAM: Was irregular with controlled rate. No murmurs or gallops heard. ABDOMEN: Slightly obese, soft, nontender, with no definite hepatosplenomegaly or other masses palpable. EXTREMITIES: Showed no edema. NEUROLOGICAL EXAM: Showed no focal motor deficits. LABORATORY: CBC done yesterday showed white count of 7.2, hemoglobin 8.1, MCV 84, RDW 16.2, platelet count 216,000 with normal automated differential count. Chemistry panel done yesterday showed normal electrolytes. BUN was 16 and creatinine 0.68 with GFR more than 60 mL per minute. AST was elevated at 47 and alkaline phosphatase at 323. Albumin was below normal at 2.8 with the rest of the liver function studies normal. CEA level done on 02/10/2017 was elevated at 14.9. MRI of the brain done on 02/09/2017 showed no acute infarct. age appropriate atrophy with mild chronic small vessel ischemic disease, no space occupying mass. CT scan of the abdomen and pelvis done on the same day with and without contrast, including rectal contrast was reviewed. The contrast reflexes to the cecum, but not far enough into the distal small bowel to evaluate the mass like lesion in the pelvis. Small bowel was not dilated. Lobulated mass in the right lower lung and smaller nodules in the lungs are noted. Liver was unremarkable. The differential diagnosis for the pelvic mass include: Neoplasm versus encased loops of small bowel within an internal hernia. CT scan of the abdomen and pelvis done on 11/29/2016 showed an indeterminate fullness within the right side of the pelvis inseparable from the edges and bowel lobes and right adnexa; this measured 5.9 x 3.3 x 6.2 cm and a pelvic ultrasound as well as CT scan with oral and IV contrast was recommended. Pelvic ultrasound was attempted on 12/14/2016, but this was a suboptimal study and only bladder images were obtained. . IMPRESSION: 1. 86-year-old female with a pelvic mass, which is suspicious for neoplasm. Recurrent TIAs and baseline dementia with worsening physical condition. 2. Previous history of dysplastic polyps with low anterior resection and right segmental colectomy versus hemicolectomy. 3. History of DCIS status post left mastectomy in the distant past. 4. Multiple other comorbidities including atrial fibrillation requiring chronic anticoagulation, hypertension, hypercholesterolemia, hypothyroidism, etc. RECOMMENDATIONS: 1. Today. I reviewed the CT scan images with the patient's daughters and answered their questions. With the patient and both the daughters are of the opinion that patient would not want to go through any major surgery in her current condition. If the pelvic mass turns out to be malignant, she would need major surgery to have this mass removed and until this is evaluated at the time of surgery there is no way of knowing how much adhesions are present and whether this is even resectable. 2. If further work-up is done to make a diagnosis first before making a decision whether to treat or not, she may need a gynecology evaluation to make sure this mass is not arising from the uterus or ovaries, capsular endoscopy to see if this mass is arising from the small bowel, etc. 3. If this is proven malignant and she does not want to go through surgery and some of the other available options may be chemotherapy down stage the disease or prevent complications. Both the patient's daughters felt that she is not strong enough to undergo chemotherapy and they did not want her going through this. 4. At this point I discussed the option of best supportive care with or without hospice and both the daughters are leaning towards this option. According to them the patient is not having any symptoms now and most of her symptoms are related to intermittent TIAs. They wanted her discharged to [facility] and wanted to talk to Dr. Carlos regarding Hospice care. With this mass that is increasing in size, as well as her multiple other comorbidities, her overall prognosis is poor and she would be appropriate for hospice. She also has Hemoccult positive stool and anemia. In addition, she is also on anticoagulation because of the chronic atrial fibrillation, which can worsen the anemia or cause a major bleed. All of this makes her prognosis poor. 5. I have discussed all these in detail with both the patient's daughters. The patient did not want any aggressive treatment and wanted to get back to the [facility] to her pet dog as soon as possible. I have not scheduled a follow-up appointment for them at the [facility], but if I could be of help in the future. I will be happy to see her. Job ID: [id number] Dictated Date: 02/12/2017 17:19:48 Sql S[employer] Developer Date: 02/13/2017 09:18:42/scott [email or web address]
--- OUTSIDE RECORDS SUMMARY | 2017-02-15 06:46 | XMS REPORT | Continuity of Care Document ---
Author Author [facility] Organization [facility] Address Unknown Phone Unavailable Allergies Active Description Code Type Severity Reaction Onset Reported/Identified Relationship to Patient Clinical Status Yes aspirin [id number] Drug Allergy Unknown N/A 05/01/2015 Yes clopidogrel [id number] Drug Allergy Unknown INTERNAL BLEEDI 05/01/2015 Yes niacin [id number] Drug Allergy Unknown N/A 05/01/2015 Yes [place] [...] 560.1 PARALYTIC ILEUS 06/04/2012 Ot 568.0 PERITONEAL [id number] 06/04/2012 Ot 997.49 OTHER DIGESTIVE SYSTEM COMPLICATIONS [...] V58.63 LONG-TERM(CURRENT)USE OF ANTIPLATELET/AN 06/28/2014 DEBBIE LOMBARDI JALOUSIES INSTALLER Ot 285.9 ANEMIA NOS 07/02/2014 DEBBIE LOMBARDI JALOUSIES INSTALLER Ot 285.9 07/02/2014 DEBBIE LOMBARDI JALOUSIES INSTALLER Ot 578.1 08/30/2014 DEBBIE LOMBARDI JALOUSIES INSTALLER Ot 285.9 08/30/2014 DEBBIE LOMBARDI JALOUSIES INSTALLER Ot 578.1 09/09/2014 Ot V76.12 09/09/2014 Ot [...] العراقي MD Ot V72.84 09/09/2014 DEBBIE LOMBARDI JALOUSIES INSTALLER Ot 285.9 09/09/2014 DEBBIE LOMBARDI JALOUSIES INSTALLER Ot 578.1 09/26/2014 DEBBIE LOMBARDI JALOUSIES INSTALLER Ot 285.9 ANEMIA NOS 09/26/2014 DEBBIE LOMBARDI JALOUSIES INSTALLER Ot 578.1 BLOOD IN STOOL 04/28/2015 Ot [...] 04/28/2015 JF DUKE MD Ot 424.0 04/28/2015 FJ DUKE MD Ot 780.79 04/28/2015 JF DUKE [...] DUKE MD Ot R06.09 09/23/2015 DEBBIE LOMBARDI JALOUSIES INSTALLER Ot M54.41 10/11/2015 DEBBIE LOMBARDI JALOUSIES INSTALLER Ot M54.41 10/13/2015 DEBBIE LOMBARDI JALOUSIES INSTALLER Ot M54.41 LUMBAGO WITH SCIATICA, RIGHT SIDE [...] MD Ot I25.10 ATHSCL HEART DISEASE OF [place] CORONARY 11/23/2015 JF DUKE MD Ot I65.23 [...] MD Ot I25.10 ATHSCL HEART DISEASE OF [place] CORONARY 12/06/2015 JF DUKE MD Ot I65.23 [...] CCDS Ot I25.10 ATHSCL HEART DISEASE OF [place] CORONARY 12/07/2015 EBER KEYES FACC, ALI FACP [...] CCDS Ot I25.10 ATHSCL HEART DISEASE OF [place] CORONARY 12/07/2015 EBER KEYES FACC, ALI FACP [...] OF MICTURITION 01/01/2016 KAREN ZELAYA Ot Z79.01 PRISON (CURRENT) USE OF ANTICOAGULANT 01/06/2016 EBER KEYES [facility], ALI FACP CCDS Ot 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 01/06/2016 BEER KEYES FACC, ALI FACP CCDS Ot I10 ESSENTIAL (PRIMARY) HYPERTENSION 01/06/2016 EBER KEYES FAC, ALI FACP CCDS Ot I25.10 ATHSCL HEART DISEASE OF [place] CORONARY 01/06/2016 EBER WILLIAM, ALI FACP CCDS Ot I48.0 PAROXYSMAL ATRIAL FIBRILLATION 01/06/2016 EBER KEYES FACC, ALI FACP CCDS Ot I65.23 OCCLUSION AND STENOSIS OF BILATERAL [place] 01/06/2016 EBER KEYES FACC, BENI FACP CCDS Ot R41.0 DISORIENTATION, UNSPECIFIED 02/17/2016 DAFNE SOTO MD Ot I95.1 ORTHOSTATIC HYPOTENSION 02/17/2016 DAFNE SOTO MD Ot R42 DIZZINESS AND GIDDINESS 02/17/2016 DAFNE SOTO MD Ot Z79.899 OTHER PRISON (CURRENT) DRUG THERAPY 02/20/2016 DAFNE SOTO MD Ot I95.1 ORTHOSTATIC HYPOTENSION 02/20/2016 DAFNE SOTO MD Ot R42 DIZZINESS AND GIDDINESS 02/20/2016 DAFNE SOTO MD Ot Z79.899 OTHER PRISON (CURRENT) DRUG THERAPY 11/01/2016 Ot V72.84 EXAM [...] MD Ot I25.10 ATHSCL HEART DISEASE OF [place] CORONARY 11/01/2016 JF DUKE MD Ot I65.23 OCCLUSION AND STENOSIS OF BILATERAL [place] 11/01/2016 JF DUKE MD Ot R06.09 OTHER FORMS OF DYSPNEA 11/01/2016 EBER KEYES FACC, BENI FACP CCDS Ot 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 11/01/2016 EBER KEYES FACC, ALI FACP CCDS Ot I10 ESSENTIAL (PRIMARY) HYPERTENSION 11/01/2016 EBER KEYES FACC, ALI FACP CCDS Ot I25.10 ATHSCL HEART DISEASE OF [place] CORONARY 11/01/2016 EBER KEYES FACC, ALI FACP [...] MD Ot 786.09 RESPIRATORY ABNORM NEC 11/27/2016 JF DUKE MD Ot 401.9 HYPERTENSION [...] MD Ot I25.10 ATHSCL HEART DISEASE OF [place] CORONARY 11/27/2016 JF DUKE MD Ot I65.23 OCCLUSION AND STENOSIS OF BILATERAL [place] 11/27/2016 JF DUKE MD Ot R06.09 OTHER FORMS OF DYSPNEA 11/27/2016 EBER KEYES FACC, BENI FACP CCDS Ot 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 11/27/2016 EBER KEYES FACC, ALI FACP CCDS Ot I10 ESSENTIAL (PRIMARY) HYPERTENSION 11/27/2016 EBER KEYES FACC, ALI FACP CCDS Ot I25.10 ATHSCL HEART DISEASE OF [place] CORONARY 11/27/2016 EBER KEYES FACC, ALI FACP [...] MD Ot I25.10 ATHSCL HEART DISEASE OF [place] CORONARY 12/13/2016 JF DUKE MD Ot I65.23 OCCLUSION AND STENOSIS OF [place]IL[place]AL [place] 12/13/2016 JF DUKE MD Ot R06.09 OTHER FORMS OF DYSPNEA 12/13/2016 EBER KEYES FACC, BENI FACP CCDS Ot 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 12/13/2016 EBER KEYES FACC, ALI FACP CCDS Ot I10 ESSENTIAL (PRIMARY) HYPERTENSION 12/13/2016 EBER KEYES FACC, ALI FACP CCDS Ot I25.10 ATHSCL HEART DISEASE OF [place] CORONARY 12/13/2016 EBER KEYES FACC, BENI FACP [...] Ot R53.83 OTHER FATIGUE 12/13/2016 EBER KEYES [facility], ALI FACP CCDS Ot G45.9 TRANSIENT CEREBRAL ISCHEMIC ATTACK, UNSP 12/13/2016 EBER KEYES [facility], ALI FACP CCDS Ot I48.0 PAROXYSMAL ATRIAL FIBRILLATION 12/13/2016 EBER KEYES [facility], ALI FACP CCDS Ot R06.02 SHORTNESS OF BREATH 12/13/2016 EBER KEYES [facility], ALI FACP CCDS Ot R53.83 OTHER FATIGUE [...] NAYAN HERNANDEZ MD Ot Y92.[address] 12/13/2016 NAYAN HERNANDEZ MD Ot Y99.8 OTHER EXTERNAL CAUSE STATUS 12/13/2016 NAYAN HERNANDEZ MD Ot Z79.01 PRISON (CURRENT) USE OF ANTICOAGULANT 12/13/2016 NAYAN HERNANDEZ MD Ot Z79.899 OTHER ADULT NEUROPSYCHOLOGIST (CURRENT) DRUG THERAPY 12/13/2016 Ot V72.84 EXAM [...] MD Ot I25.10 ATHSCL HEART DISEASE OF [place] CORONARY 12/13/2016 JF DUKE MD Ot I65.23 OCCLUSION AND STENOSIS OF [place]IL[place]AL [place] 12/13/2016 JF DUKE MD Ot R06.09 OTHER FORMS OF DYSPNEA 12/13/2016 EBER KEYES FACC, BENI WILLIAMP CCDS Ot 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 12/13/2016 EBER KEYES FACC, ALI FACP CCDS Ot I10 ESSENTIAL (PRIMARY) HYPERTENSION 12/13/2016 EBER KEYES FACC, ALI FACP CCDS Ot I25.10 ATHSCL HEART DISEASE OF [place] CORONARY 12/13/2016 EBER KEYES FACC, BENI FACP [...] MD Ot I25.10 ATHSCL HEART DISEASE OF [place] CORONARY 12/14/2016 JF DUKE MD Ot I65.23 OCCLUSION AND STENOSIS OF [place]IL[place]AL [place] 12/14/2016 JF DKUE MD Ot R06.09 OTHER FORMS OF DYSPNEA 12/14/2016 EBER KEYES FACC, BENI FACP CCDS Ot 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 12/14/2016 EBER KEYES FACC, ALI FACP CCDS Ot I10 ESSENTIAL (PRIMARY) HYPERTENSION 12/14/2016 EBER KEYES FACC, ALI FACP CCDS Ot I25.10 ATHSCL HEART DISEASE OF [place] CORONARY 12/14/2016 EBER KEYES FACC, ALI FACP [...] NAYAN HERNANDEZ MD Ot Y92.[address] 12/23/2016 NAYAN HERNANDEZ MD Ot Y99.8 OTHER EXTERNAL CAUSE STATUS 12/23/2016 NAYAN HERNANDEZ MD Ot Z79.01 ADULT NEUROPSYCHOLOGIST (CURRENT) USE OF ANTICOAGULANT 12/23/2016 NAYAN HERNANDEZ MD Ot Z79.899 OTHER ADULT NEUROPSYCHOLOGIST (CURRENT) DRUG THERAPY 12/31/2016 BENI VELÁZQUEZ MD, FACCP CCDS Ot 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 12/31/2016 EBER KEYES FACC, BENI WILLIAMP CCDS Ot I48.0 PAROXYSMAL ATRIAL FIBRILLATION 12/31/2016 BENI VELÁZQUEZ MD, FACCP CCDS Ot R06.02 SHORTNESS OF BREATH 12/31/2016 EBER KEYES FAC, ALI [facility] CCDS Ot R53.83 OTHER FATIGUE 01/08/2017 RONALD TAVERAS MD Ot R10.2 PELVIC AND PERINEAL PAIN 01/15/2017 NAYAN HERNANDEZ MD, Ot D64.9 ANEMIA, UNSPECIFIED 01/15/2017 NAYAN HERNANDEZ MD, Ot E03.9 HYPOTHYROIDISM, UNSPECIFIED 01/15/2017 NAYAN HERNANDEZ MD, Ot E78.00 PURE HYPERCHOLESTEROLEMIA, UNSPECIFIED 01/15/2017 NAYAN HERNANDEZ MD Ot I10 ESSENTIAL (PRIMARY) HYPERTENSION 01/15/2017 NAYAN HERNANDEZ MD Ot S00.11XA CONTUSION OF RIGHT EYELID AND PERIOCULAR 01/15/2017 NAYAN HERNANDEZ MD Ot S09.93XA UNSPECIFIED INJURY OF FACE, INITIAL ENCO 01/15/2017 NAYAN HERNANDEZ MD Ot W18.30XA FALL ON SAME LEVEL, UNSPECIFIED, INITIAL 01/15/2017 NAYAN HERNANDEZ MD Ot Z23 ENCOUNTER FOR IMMUNIZATION 01/15/2017 NAYAN HERNANDEZ MD Ot Z79.01 ADULT NEUROPSYCHOLOGIST (CURRENT) USE OF ANTICOAGULANT 01/17/2017 NAYAN HERNANDEZ MD Ot D64.9 ANEMIA, UNSPECIFIED 01/17/2017 NAYAN HERNANDEZ MD Ot E03.9 HYPOTHYROIDISM, UNSPECIFIED 01/17/2017 NAYAN HERNANDEZ MD Ot E78.00 PURE HYPERCHOLESTEROLEMIA, UNSPECIFIED 01/17/2017 NAYAN HERNANDEZ MD Ot I10 ESSENTIAL (PRIMARY) HYPERTENSION 01/17/2017 NAYAN HERNANDEZ MD Ot S00.11XA CONTUSION OF RIGHT EYELID AND PERIOCULAR 01/17/2017 NAYAN HERNANDEZ MD Ot S09.93XA UNSPECIFIED INJURY OF FACE, INITIAL ENCO 01/17/2017 NAYAN HERNANDEZ MD Ot W18.30XA FALL ON SAME LEVEL, UNSPECIFIED, INITIAL 01/17/2017 NAYAN HERNANDEZ MD Ot Z23 ENCOUNTER FOR IMMUNIZATION 01/17/2017 NAYAN HERNANDEZ MD Ot Z79.01 ADULT NEUROPSYCHOLOGIST (CURRENT) USE OF ANTICOAGULANT 01/21/2017 NAYAN HERNANDEZ MD, Ot D64.9 ANEMIA, UNSPECIFIED 01/21/2017 NAYAN HERNANDEZ MD, Ot E03.9 HYPOTHYROIDISM, UNSPECIFIED 01/21/2017 NAYAN HERNANDEZ MD, Ot E78.00 PURE HYPERCHOLESTEROLEMIA, UNSPECIFIED 01/21/2017 NAYAN HERNANDEZ MD, Ot I10 ESSENTIAL (PRIMARY) HYPERTENSION 01/21/2017 NAYAN HERNANDEZ MD, Ot S00.11XA CONTUSION OF RIGHT EYELID AND PERIOCULAR 01/21/2017 NAYAN HERNANDEZ MD, Ot S09.93XA UNSPECIFIED INJURY OF FACE, INITIAL ENCO 01/21/2017 NAYAN HERNANDEZ MD, Ot W18.30XA FALL ON SAME LEVEL, UNSPECIFIED, INITIAL 01/21/2017 NAYAN HERNANDEZ MD, Ot Z23 ENCOUNTER FOR IMMUNIZATION 01/21/2017 NAYAN HERNANDEZ MD, Ot Z79.01 PRISON (CURRENT) USE OF ANTICOAGULANT 02/07/2017 DEBBIE LOMBARDI APRN Ot N39.0 URINARY TRACT INFECTION, SITE NOT SPECIF Procedures Code Description Performed By Performed On 48.63 12/14/2005 85.43 06/17/2006 38.93 11/28/2006 54.59 11/28/2006 17.33 LAPAROSCOPIC RIGHT HEMICOLECTOMY 05/29/2012 38.93 VENOUS CATHETERIZATION NEC 05/29/2012 45.93 [id number] BOWEL NEC 05/29/2012 Results Test Result Range [...] urinalysis with reflex to culture NO NRG Complete urinalysis with reflex to culture - 01/15/17 18:27 Urine color determination YELLOW NRG Urine clarity determination CLEAR NRG Urine pH measurement by test strip 6.5 5 -9 Specific gravity of urine by test strip 1.010 1.016-1.022 Urine protein assay by test strip, semi-quantitative NEGATIVE NEGATIVE Urine glucose detection by automated test strip NEGATIVE NEGATIVE Erythrocytes detection in urine sediment by light microscopy NEGATIVE NEGATIVE Urine ketones detection by automated test strip NEGATIVE NEGATIVE Urine nitrite detection by test strip NEGATIVE NEGATIVE Urine total bilirubin detection by test strip NEGATIVE NEGATIVE Urine urobilinogen measurement by automated test strip (mass/volume) NORMAL NORMAL Urine leukocyte esterase detection by dipstick 1+ NEGATIVE Automated urine sediment erythrocyte count by microscopy (number/high power field) NONE NRG Automated urine sediment leukocyte count by microscopy (number/high power field ) [HPF] NRG Bacteria detection in urine sediment by light microscopy NONE NRG Crystals detection in urine sediment by light microscopy NONE NRG Casts detection in urine sediment by light microscopy NONE NRG Mucus detection in urine sediment by light microscopy NEGATIVE NRG Complete urinalysis with reflex to culture NO NRG Bacterial urine culture - 01/15/17 18:27 Bacterial urine culture SEE COMMEN NRG COLONY COUNT . NRG FREE TEXT ENTRY 2 MIXED GRAM POSITIVE CRISTA <10,000/ML NRG Complete blood count (CBC) with automated white blood cell (WBC) differential - 02/08/17 21:10 Blood leukocytes automated count (number/volume) 7.0 10*3/ uL 4.3-11.0 Blood erythrocytes automated count (number/volume) 3.07 10*6 /uL 4.35-5.85 Venous blood hemoglobin measurement (mass/volume) 8.1 g/dL 11.5-16.0 Blood hematocrit (volume fraction) 26 % 35-52 Automated erythrocyte mean corpuscular volume 85 [foz_us] 80-99 Automated erythrocyte mean corpuscular hemoglobin (mass per erythrocyte) 26 pg 25-34 Automated erythrocyte mean corpuscular hemoglobin concentration measurement ( mass/volume) 31 g/dL 32-36 Automated erythrocyte distribution width ratio 16.3 % 10.0-14.5 Automated blood platelet count (count/volume) 194 10*3/uL 130-400 Automated blood platelet mean volume measurement 10.3 [foz_ us] 7.4-10.4 Automated blood neutrophils/100 leukocytes 56 % 42-75 Automated blood lymphocytes/100 leukocytes 33 % 12-44 Blood monocytes/100 leukocytes 11 % 0-12 Automated blood eosinophils/100 leukocytes 1 % 0-10 Automated blood basophils/100 leukocytes 0 % 0-10 Blood neutrophils automated count (number/volume) 3.9 10*3 1.8-7.8 Blood lymphocytes automated count (number/volume) 2.3 10*3 1.0-4.0 Blood monocytes automated count (number/volume) 0.8 10*3 0.0-1.0 Automated eosinophil count 0.0 10*3/uL 0.0-0.3 Automated blood basophil count (count/volume) 0.0 10*3/uL 0.0-0.1 Comprehensive metabolic panel - 02/08/17 21:10 Serum or plasma sodium measurement (moles/volume) 132 mmol/ L 135-145 Serum or plasma potassium measurement (moles/volume) 3.9 mmol/L 3.6-5.0 Serum or plasma chloride measurement (moles/volume) 100 mmol /L 98-107 Carbon dioxide 23 mmol/L 21-32 Serum or plasma anion gap determination (moles/volume) 9 mmol/L 5-14 Serum or plasma urea nitrogen measurement (mass/volume) 20 mg/dL 7-18 Serum or plasma creatinine measurement (mass/volume) 0.82 mg /dL 0.60-1.30 Serum or plasma urea nitrogen/creatinine mass ratio 24 NRG Serum or plasma creatinine measurement with calculation of estimated glomerular filtration rate > NRG Serum or plasma glucose measurement (mass/volume) 131 mg/dL 70-105 Serum or plasma calcium measurement (mass/volume) 8.9 mg/dL 8.5-10.1 Serum or plasma total bilirubin measurement (mass/volume) 0.4 mg/dL 0.1-1.0 Serum or plasma alkaline phosphatase measurement (enzymatic activity/volume) 378 U/L 40-136 Serum or plasma aspartate aminotransferase measurement (enzymatic activity/ volume) 66 U/L 5-34 Serum or plasma alanine aminotransferase measurement (enzymatic activity/volume ) 63 U/L 0-55 Serum or plasma protein measurement (mass/volume) 7.4 g/dL 6.4-8.2 Serum or plasma albumin measurement (mass/volume) 3.0 g/dL 3.2-4.5 Lipase - 02/08/17 21:10 Lipase 11 U/L 8-78 Complete urinalysis with reflex to culture - 02/08/17 22:45 Urine color determination YELLOW NRG Urine clarity determination CLEAR NRG Urine pH measurement by test strip 7 5- 9 Specific gravity of urine by test strip 1.005 1.016-1.022 Urine protein assay by test strip, semi-quantitative NEGATIVE NEGATIVE Urine glucose detection by automated test strip NEGATIVE NEGATIVE Erythrocytes detection in urine sediment by light microscopy NEGATIVE NEGATIVE Urine ketones detection by automated test strip NEGATIVE NEGATIVE Urine nitrite detection by test strip NEGATIVE NEGATIVE Urine total bilirubin detection by test strip NEGATIVE NEGATIVE Urine urobilinogen measurement by automated test strip (mass/volume) NORMAL NORMAL Urine leukocyte esterase detection by dipstick NEGATIVE NEGATIVE Automated urine sediment erythrocyte count by microscopy (number/high power field) NONE NRG Automated urine sediment leukocyte count by microscopy (number/high power field ) RARE NRG Bacteria detection in urine sediment by light microscopy NEGATIVE NRG Crystals detection in urine sediment by light microscopy NONE NRG Casts detection in urine sediment by light microscopy NONE NRG Mucus detection in urine sediment by light microscopy NEGATIVE NRG Complete urinalysis with reflex to culture NO NRG Complete blood count (CBC) with automated white blood cell (WBC) differential - 02/09/17 04:48 Blood leukocytes automated count (number/volume) 6.7 10*3/ uL 4.3-11.0 Blood erythrocytes automated count (number/volume) 3.17 10*6 /uL 4.35-5.85 Venous blood hemoglobin measurement (mass/volume) 8.1 g/dL 11.5-16.0 Blood hematocrit (volume fraction) 27 % 35-52 Automated erythrocyte mean corpuscular volume 84 [foz_us] 80-99 Automated erythrocyte mean corpuscular hemoglobin (mass per erythrocyte) 26 pg 25-34 Automated erythrocyte mean corpuscular hemoglobin concentration measurement ( mass/volume) 31 g/dL 32-36 Automated erythrocyte distribution width ratio 16.2 % 10.0-14.5 Automated blood platelet count (count/volume) 201 10*3/uL 130-400 Automated blood platelet mean volume measurement 10.2 [foz_ us] 7.4-10.4 Automated blood neutrophils/100 leukocytes 48 % 42-75 Automated blood lymphocytes/100 leukocytes 36 % 12-44 Blood monocytes/100 leukocytes 14 % 0-12 Automated blood eosinophils/100 leukocytes 1 % 0-10 Automated blood basophils/100 leukocytes 0 % 0-10 Blood neutrophils automated count (number/volume) 3.2 10*3 1.8-7.8 Blood lymphocytes automated count (number/volume) 2.4 10*3 1.0-4.0 Blood monocytes automated count (number/volume) 0.9 10*3 0.0-1.0 Automated eosinophil count 0.1 10*3/uL 0.0-0.3 Automated blood basophil count (count/volume) 0.0 10*3/uL 0.0-0.1 Comprehensive metabolic panel - 02/09/17 04:48 Serum or plasma sodium measurement (moles/volume) 136 mmol/ L 135-145 Serum or plasma potassium measurement (moles/volume) 3.7 mmol/L 3.6-5.0 Serum or plasma chloride measurement (moles/volume) 105 mmol /L 98-107 Carbon dioxide 24 mmol/L 21-32 Serum or plasma anion gap determination (moles/volume) 7 mmol/L 5-14 Serum or plasma urea nitrogen measurement (mass/volume) 17 mg/dL 7-18 Serum or plasma creatinine measurement (mass/volume) 0.69 mg /dL 0.60-1.30 Serum or plasma urea nitrogen/creatinine mass ratio 25 NRG Serum or plasma creatinine measurement with calculation of estimated glomerular filtration rate > NRG Serum or plasma glucose measurement (mass/volume) 89 mg/dL 70-105 Serum or plasma calcium measurement (mass/volume) 8.9 mg/dL 8.5-10.1 Serum or plasma total bilirubin measurement (mass/volume) 0.4 mg/dL 0.1-1.0 Serum or plasma alkaline phosphatase measurement (enzymatic activity/volume) 376 U/L 40-136 Serum or plasma aspartate aminotransferase measurement (enzymatic activity/ volume) 65 U/L 5-34 Serum or plasma alanine aminotransferase measurement (enzymatic activity/volume ) 61 U/L 0-55 Serum or plasma protein measurement (mass/volume) 7.5 g/dL 6.4-8.2 Serum or plasma albumin measurement (mass/volume) 3.0 g/dL 3.2-4.5 Automated blood complete blood count (hemogram) panel - 02/10/17 04:41 Blood leukocytes automated count (number/volume) 9.8 10*3/ uL 4.3-11.0 Blood erythrocytes automated count (number/volume) 3.32 10*6 /uL 4.35-5.85 Venous blood hemoglobin measurement (mass/volume) 8.5 g/dL 11.5-16.0 Blood hematocrit (volume fraction) 28 % 35-52 Automated erythrocyte mean corpuscular volume 83 [foz_us] 80-99 Automated erythrocyte mean corpuscular hemoglobin (mass per erythrocyte) 26 pg 25-34 Automated erythrocyte mean corpuscular hemoglobin concentration measurement ( mass/volume) 31 g/dL 32-36 Automated erythrocyte distribution width ratio 16.2 % 10.0-14.5 Automated blood platelet count (count/volume) 217 10*3/uL 130-400 Automated blood platelet mean volume measurement 10.0 [foz_ us] 7.4-10.4 Comprehensive metabolic panel - 02/10/17 04:41 Serum or plasma sodium measurement (moles/volume) 135 mmol/ L 135-145 Serum or plasma potassium measurement (moles/volume) 3.6 mmol/L 3.6-5.0 Serum or plasma chloride measurement (moles/volume) 104 mmol /L 98-107 Carbon dioxide 18 mmol/L 21-32 Serum or plasma anion gap determination (moles/volume) 13 mmol/L 5-14 Serum or plasma urea nitrogen measurement (mass/volume) 13 mg/dL 7-18 Serum or plasma creatinine measurement (mass/volume) 0.67 mg /dL 0.60-1.30 Serum or plasma urea nitrogen/creatinine mass ratio 19 NRG Serum or plasma creatinine measurement with calculation of estimated glomerular filtration rate > NRG Serum or plasma glucose measurement (mass/volume) 91 mg/dL 70-105 Serum or plasma calcium measurement (mass/volume) 8.8 mg/dL 8.5-10.1 Serum or plasma total bilirubin measurement (mass/volume) 0.6 mg/dL 0.1-1.0 Serum or plasma alkaline phosphatase measurement (enzymatic activity/volume) 391 U/L 40-136 Serum or plasma aspartate aminotransferase measurement (enzymatic activity/ volume) 58 U/L 5-34 Serum or plasma alanine aminotransferase measurement (enzymatic activity/volume ) 59 U/L 0-55 Serum or plasma protein measurement (mass/volume) 7.6 g/dL 6.4-8.2 Serum or plasma albumin measurement (mass/volume) 3.1 g/dL 3.2-4.5 Serum ragweed IgE antibody assay - 02/10/17 04:41 Serum ragweed IgE antibody assay 14.9 % 0.0-5.0 CA 19-9 - 02/10/17 04:41 CA 19-9 C 31 u[iU]/mL 0-37 Complete blood count (CBC) with automated white blood cell (WBC) differential - 02/11/17 05:47 Blood leukocytes automated count (number/volume) 7.2 10*3/ uL 4.3-11.0 Blood erythrocytes automated count (number/volume) 3.16 10*6 /uL 4.35-5.85 Venous blood hemoglobin measurement (mass/volume) 8.1 g/dL 11.5-16.0 Blood hematocrit (volume fraction) 27 % 35-52 Automated erythrocyte mean corpuscular volume 84 [foz_us] 80-99 Automated erythrocyte mean corpuscular hemoglobin (mass per erythrocyte) 26 pg 25-34 Automated erythrocyte mean corpuscular hemoglobin concentration measurement ( mass/volume) 31 g/dL 32-36 Automated erythrocyte distribution width ratio 16.2 % 10.0-14.5 Automated blood platelet count (count/volume) 216 10*3/uL 130-400 Automated blood platelet mean volume measurement 9.7 [foz_us ] 7.4-10.4 Automated blood neutrophils/100 leukocytes 55 % 42-75 Automated blood lymphocytes/100 leukocytes 32 % 12-44 Blood monocytes/100 leukocytes 12 % 0-12 Automated blood eosinophils/100 leukocytes 2 % 0-10 Automated blood basophils/100 leukocytes 0 % 0-10 Blood neutrophils automated count (number/volume) 4.0 10*3 1.8-7.8 Blood lymphocytes automated count (number/volume) 2.3 10*3 1.0-4.0 Blood monocytes automated count (number/volume) 0.9 10*3 0.0-1.0 Automated eosinophil count 0.1 10*3/uL 0.0-0.3 Automated blood basophil count (count/volume) 0.0 10*3/uL 0.0-0.1 Comprehensive metabolic panel - 02/11/17 05:47 Serum or plasma sodium measurement (moles/volume) 136 mmol/ L 135-145 Serum or plasma potassium measurement (moles/volume) 3.8 mmol/L 3.6-5.0 Serum or plasma chloride measurement (moles/volume) 106 mmol /L 98-107 Carbon dioxide 23 mmol/L 21-32 Serum or plasma anion gap determination (moles/volume) 7 mmol/L 5-14 Serum or plasma urea nitrogen measurement (mass/volume) 16 mg/dL 7-18 Serum or plasma creatinine measurement (mass/volume) 0.68 mg /dL 0.60-1.30 Serum or plasma urea nitrogen/creatinine mass ratio 24 NRG Serum or plasma creatinine measurement with calculation of estimated glomerular filtration rate > NRG Serum or plasma glucose measurement (mass/volume) 92 mg/dL 70-105 Serum or plasma calcium measurement (mass/volume) 8.5 mg/dL 8.5-10.1 Serum or plasma total bilirubin measurement (mass/volume) 0.5 mg/dL 0.1-1.0 Serum or plasma alkaline phosphatase measurement (enzymatic activity/volume) 323 U/L 40-136 Serum or plasma aspartate aminotransferase measurement (enzymatic activity/ volume) 47 U/L 5-34 Serum or plasma alanine aminotransferase measurement (enzymatic activity/volume ) 48 U/L 0-55 Serum or plasma protein measurement (mass/volume) 6.9 g/dL 6.4-8.2 Serum or plasma albumin measurement (mass/volume) 2.8 g/dL 3.2-4.5 Encounters ACCT No. Visit Date/Time Discharge Status Pt. Type Provider Facility Loc./Unit Complaint [id number] 02/10/2017 15:26:00 2016 17:00:00 DIS Inpatient CURT BROWN DO [facility] 4TH CONFUSION [id number] 01/15/2017 07:07:00 2016 09:07:00 DIS Emergency NAYAN HERNANDEZ MD [facility] ER FELL LACERATION RIGHT EYE [id number] 12/13/2016 09:41:00 2016 11:23:00 DIS Emergency NAYAN HERNANDEZ MD [facility] ER FALL/HEAD INJURY [id number] 02/17/2016 15:12:00 2015 17:02:00 DIS Emergency DAFNE SOTO MD [facility] ER DIZZINESS [id number] 01/01/2016 11:31:00 2015 14:36:00 DIS Emergency KAREN ZELAYA [facility] ER MULTIPLE FALLS [id number] 10/13/2015 12:36:00 2015 13:43:00 DIS Outpatient DEBBIE LOMBARDI APRN [facility] [facility] [id number] 05/09/2015 09:20:00 2014 23:59:59 CLS Outpatient LEILANI KEYES, JF Nolan [facility] HH CHOLESTEROLEMIA [id number] 05/01/2015 14:28:00 2014 15:15:00 DIS Inpatient RONALD TAVERAS MD [facility] 4TH TIA [id number] 04/28/2015 09:37:00 2014 23:59:59 CLS Outpatient DEBBIE LOMBARDI APRN [facility] RAD UPPER RUQ PAIN [id number] 06/29/2014 08:34:00 2013 23:59:59 CLS Outpatient DEBBIE LOMBARDI APRN [facility] LAB BLOOD IN STOOL, ANEMIA [id number] 06/28/2014 14:34:00 2013 22:30:00 DIS Outpatient DEBBIE LOMBARDI APRN [facility] SURG RCR ANEMIA [id number] 01/13/2014 08:15:00 2013 13:40:00 DIS Outpatient LIA العراقي MD [facility] SDC BLOODY STOOLS [id number] 01/07/2014 07:46:00 2013 23:59:59 CLS Outpatient LIA العراقي MD [facility] PREOP BLOODY STOOL [id number] 01/04/2014 08:18:00 2013 23:59:59 CLS Outpatient JF DUKE MD [facility] CARD DYSPNEA,HTN,HYPERTHYROIDISM,FATIGUE [id number] 01/01/2014 08:43:00 2013 23:59:59 CLS Outpatient JF DUKE MD [facility] CARD DYSPNEA,HTN,HYPERTHYROIDISM,FATIGUE [id number] 09/08/2013 09:18:00 2013 23:59:59 CLS Outpatient RONALD TAVERAS MD [facility] RAD SCREENING,TIA,CAROTID BRUIT [id number] 01/15/2017 19:35:00 ACT Outpatient DEBBIE LOMBARDI APRN [facility] LABNPT UTI [id number] 12/14/2016 13:04:00 ACT Outpatient RONALD TAVERAS MD [facility] RAD ABNORMAL CT/PELVIC PAIN [id number] 11/29/2016 13:07:00 ACT Outpatient RONALD TAVERAS MD [facility] RAD R10.30 [id number] 11/27/2016 08:16:00 ACT Outpatient EBER KEYES FACC, BENI SCHMITT CCDS [facility] CARD R53.83,I48.0,G45.2 [id number] 11/19/2016 10:41:00 ACT Outpatient EBER KEYES FACC, ALI FACP CCDS [facility] CARD R53.83,I48.0,G45.2 [id number] 11/01/2016 14:29:00 ACT Outpatient RONALD TAVERAS MD [facility] RAD DYSPNEA [id number] 12/06/2015 12:01:00 ACT Outpatient EBER KEYES FACC, ALI FACP CCDS [facility] RAD TIA,CONFUSION,HTN,CAD [id number] 11/23/2015 14:26:00 Document Registration [id number] 11/23/2015 14:26:00 Document Registration [id number] 11/23/2015 14:26:00 Document Registration [id number] 11/23/2015 14:26:00 Document Registration [id number] 11/23/2015 14:26:00 Document Registration [id number] 11/23/2015 14:26:00 Document Registration [id number] 08/31/2015 09:42:00 ACT Outpatient JF DUKE MD [facility] CARD CAD,DYPNEA,HTN, TIA [id number] 09/27/2014 00:00:00 Document Registration [id number] 09/09/2014 15:06:00 Document Registration [id number] 07/28/2012 08:41:00 Document Registration [id number] 06/11/2012 11:40:00 Document Registration [id number] 05/29/2012 08:51:00 Document Registration [id number] 05/26/2012 11:52:00 Document Registration [id number] 05/16/2012 07:47:00 Document Registration [id number] 05/05/2012 09:34:00 Document Registration [id number] 05/02/2012 08:14:00 Document Registration [id number] 04/26/2011 09:05:00 Document Registration [id number] 11/07/2010 08:22:00 Document Registration [id number] 02/04/2010 09:44:00 Document Registration [id number] 01/09/2010 10:00:00 Document Registration [id number] 12/22/2009 08:47:00 Document Registration [id number] 03/09/2009 09:00:00 Document Registration [id number] 11/02/2008 09:20:00 Document Registration [id number] 08/02/2008 09:25:00 Document Registration [id number] 10/30/2007 10:27:00 Document Registration [id number] 11/27/2006 15:16:00 Document Registration [id number] 10/28/2006 09:48:00 Document Registration [id number] 06/17/2006 11:08:00 Document Registration [id number] 06/10/2006 09:48:00 Document Registration [id number] 05/07/2006 09:28:00 Document Registration [id number] 04/30/2006 16:41:00 Document Registration [id number] 04/17/2006 09:58:00 Document Registration [id number] 02/05/2006 09:57:00 Document Registration [id number] 12/14/2005 06:10:00 Document Registration
--- NOTE | 2017-03-06 14:05 | Discharge Summary-Hospitalist ---
Diagnosis/Chief Complaint Date of Admission Feb 10, 2017 at 15:26 Date of Discharge Feb 12, 2017 at 17:00 Discharge Date: Feb 12, 2017 Admission Diagnosis Assessment: Acute neurological deficit that MRI negative for stroke but likely neoplastic process as etiology 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 with history of multiple colon resections due to large polyps that were dysplastic and history of breast cancer bilateral mastectomies Hypothyroidism Hypertension Chronic anemia of illness Overall debility uses walker to walk AF Discharge Diagnosis 1.transient neurologic defect characterized by aphasia. 2.large pelvic mass consistent with malignancy. 3.multiple pulmonary nodules consistent with metastasis. 4.advanced dementia and poor performance status. Discharge Summary Discharge Physical Examination Allergies: Coded Allergies: aspirin (Verified Allergy, Unknown, 05/01/15) niacin (Verified Allergy, Unknown, 05/01/15) clopidogrel (Verified Adverse Reaction, Unknown, INTERNAL BLEEDING , 05/01) Uncoded Allergies: BERLANTA (Allergy, Severe, ASTHMA, 12/13/16) Discharge Home Medications: Active Scripts Active Lipitor (Atorvastatin Calcium) 20 Mg Tablet 20 Mg PO DAILY Reported Tylenol Extra Strength (Acetaminophen) 500 Mg Tablet 500 Mg PO Q6H PRN Multivitamins with Minerals (Multivitamin with Minerals) 1 Each Tablet 1 Tab PO DAILY Vitamin B-12 (Cyanocobalamin (Vitamin B-12)) 500 Mcg Tablet 500 Mcg PO DAILY Fish Oil 1,200 mg Fish Oil (Fish Oil/Dha/Epa) 1 Each Capsule 1,200 Mg PO DAILY Zoloft (Sertraline HCl) 50 Mg Tablet 50 Mg PO DAILY Melatonin 3 mg Tablet (Melatonin/Pyridoxine HCl (B6)) 1 Each Tablet 3 Mg PO HS Imodium A-D (Loperamide HCl) 2 Mg Capsule 2 Mg PO Q12H PRN Vitamin A and D (Vitamins A and D) 1 Each Capsule 1 Cap PO DAILY Calcium 600 + Vit D Tablet (Calcium Carbonate/Vitamin D3) 1 Each Tablet 1 Tab PO DAILY Vitamin B-6 (Pyridoxine HCl) 100 Mg Tablet 100 Mg PO DAILY Synthroid (Levothyroxine Sodium) 75 Mcg Tablet 75 Mcg PO DAILY Instructions to patient/family Please see electonic discharge instructions given to patient. Clinical Quality Measures DVT/VTE Risk/Contraindication: Risk Factor Score Per Nursin RFS Level Per Nursing on Admit: 2=Moderate DAFNE SOTO MD Mar 06, 2017 14:05
== END 2017-02-12 17:00 | DRG 93 ==
LOC: EDUNIT# 20:11 → ER 20:14 → 4TH 23:55 → UNDOADMOB 23:55 → 4TH 02-09 01:30 → INTOOBSV 02-10 15:26 → OBSVTOIN 02-10 15:26 → UNDODISIN 02-12 17:00
PROVIDERS: ADMIT Internal Medicine; ATTEND Internal Medicine
DX: R29.818 Other symptoms and signs involving the nervous system (principal); R19.09 Other intra-abdominal and pelvic swelling, mass and lump; Z86.010 Personal history of colon polyps; Z85.3 Personal history of malignant neoplasm of breast; Z90.13 Acquired absence of bilateral breasts and nipples; E03.9 Hypothyroidism, unspecified; I10 Essential (primary) hypertension; E78.5 Hyperlipidemia, unspecified; D63.8 Anemia in other chronic diseases classified elsewhere; I48.2 Chronic atrial fibrillation; R53.81 Other malaise; R91.8 Other nonspecific abnormal finding of lung field; F03.90 Unspecified dementia, unspecified severity, without behavioral disturbance, psychotic disturbance, mood disturbance, and anxiety; E78.00 Pure hypercholesterolemia, unspecified; Z79.01 Long term (current) use of anticoagulants; Z86.73 Personal history of transient ischemic attack (TIA), and cerebral infarction without residual deficits
CPT/HCPCS: 36415; 70450; 70551; 71010; 74177; 74178; 76705; 80053; 81000; 82378; 83690; 85025; 85027; 86301; 96360; G0378

== ENCOUNTER 2017-07-04 15:25 | Outpatient (CLI) | payer MEDICARE ==
[~2017-07-04] VITALS: Ht 170.2 cm; Wt 60.3 kg
[~2017-07-04 15:25] MED LIST changes: +ACET-2267 PO; +ACET325T38 PO; +APIX2.5T PO; +CYAN500T2 PO; +FISH1CAP15 PO; +LOPE-145 PO; +MELA1TAB27 PO; +MULT-166 PO; +SERT50TA2 PO
[2017-07-04 15:50] VITALS: BP 127/74
[2017-07-04] MEDS ORDERED: NS IV 500 ML 500 ML IV SCH (16:15)
[2017-07-04] MEDS ORDERED: FUROSEMIDE 40 MG/4 ML INJ (LASIX) IV ONE (16:15)
[2017-07-04 16:35] VITALS: BP 139/73
[2017-07-04 16:53] VITALS: BP 146/78
[2017-07-04 19:00] VITALS: BP 172/91
== END 2017-07-04 19:10 | disposition home or self-care (01) ==
LOC: SDC 15:25
PROVIDERS: ATTEND Physician Assistant
DX: D64.9 Anemia, unspecified (principal); R06.02 Shortness of breath
CPT/HCPCS: 36415; 85014; 85018; 86850; 86900; 86901; 86920